=== PATIENT | female | born 1945 | race Caucasian/White ===

== ENCOUNTER 2016-11-10 12:12 | Inpatient (IN) ==
--- NOTE | 2016-11-10 13:08 | Emergency Department Note ---
Arrival - Arrival Chief Complaint: Weakness Stated Complaint: CONFUSION/ HARD TO STAY AWAKE ED Nursing Triage Note: PT STATES SHE WOKE UP THIS MORNING FEELING CONFUSED AND FATIGUED, PT COMPLAINS OF RLE PAIN SECONDARY TO A FALL SHE HAD LAST WEEK. GCS 15 UPON ARRIVAL Mode of Arrival: Wheelchair Limitations: No Limitations Source: Patient Time Seen by Provider: 11/10/16 12:55 - History of Present Illness HPI Narrative: This 71-year-old white female presents with profound weakness with initial symptoms of confusion, ataxia, and slurred speech. The patient went to [employer] this morning him that she felt badly and at [employer] had to be carried out and during this. She was somewhat confused with slurred speech which subsequently cleared after several minutes. Family members did not see any specific extremity weakness, facial droop, nor has the patient had any particular complaints of chest pain, shortness of breath, headache, visual changes or dizziness the last several days prior to this episode. Currently the patient alert and oriented 3 but feels weak and nauseated. Of note the patient has had a recent injury to her hip and carries a diagnosis of rheumatoid as well as destructive DJD of the hip for which she has difficulty ambulating prior to this event. Onset (ago): hour(s) (Patient presents 5 hours post onset of symptoms) Allergies/Adverse Reactions: Allergies Allergy/AdvReac Type Severity Reaction Status Date / Time acetazolamide Allergy Mild RASH Verified 11/10/16 12:25 [From Diamox Sequels] Iodinated Contrast Media - Allergy UNCONSCIOUS Verified 11/10/16 12:25 Oral and [Iodinated Contrast Media - IV Dye] clarithromycin [From Biaxin] AdvReac Nausea Verified 11/10/16 12:25 pentazocine [From Talwin] AdvReac Hallucinati Verified 11/10/16 12:25 ng Home Medications: Home Medications Medication Instructions Recorded Confirmed Type ALPRAZolam [Xanax] 0.25 mg PO BID PRN 10/27/15 10/30/15 History Aspirin [Ecotrin] 81 mg PO DAILY 10/27/15 10/30/15 History Celecoxib [Celebrex] 200 mg PO BID 10/27/15 10/30/15 History Duloxetine HCl [Cymbalta] 60 mg PO BEDTIME 10/27/15 10/30/15 History Esomeprazole Magnesium [Nexium] 40 mg PO BID 10/27/15 10/30/15 History Furosemide Tab [Lasix Tab] 20 mg PO DAILY 10/27/15 10/30/15 History Gabapentin Cap/Tab [Neurontin 400 mg PO TID 10/27/15 10/30/15 History Cap/Tab] HYDROcodone/ACETAMIN 10-325 [[place] 1 tablet PO BID PRN 10/27/15 10/30/15 History 10-325] Hydrocortisone Tab [Cortef] 10 mg PO TID 10/27/15 10/30/15 History Hydroxychloroquine [Plaquenil] 200 mg PO BID 10/27/15 10/30/15 History Levothyroxine Tab [Synthroid Tab] 88 mcg PO DAILY 10/27/15 10/30/15 History Lipase/Protease/Amylase [Zenpep 2 capsule PO TID W/MEALS 10/27/15 10/30/15 History 25,000 Units] Methocarbamol Tab [Robaxin Tab] 500 mg PO BID 10/27/15 10/30/15 History Metoprolol Succinate Xl [Toprol Xl] 50 mg PO BID 10/27/15 10/30/15 History Morphine Sulfate [Idalmis] 40 mg PO BID 10/27/15 10/30/15 History Pantoprazole Tab [Protonix Tab] 40 mg PO BID 10/27/15 10/30/15 History Scopolamine 1.5 mg Patch 1 patch TRANSDERM Q3DAY 10/27/15 10/30/15 History [Transderm Scop 1.5 mg/72 hr Patch] traZODone [Desyrel] 50 mg PO DAILY 10/27/15 10/30/15 History Review of System - Review of System 12 point system: reviewed and no additional remarkable complaints except as stated - Review of System Constitutional: Present: as per HPI Respiratory: Present: as per HPI Cardiovascular: Present: as per HPI Gastrointestinal: Present: as per HPI Musculoskeletal: Present: as per HPI Neurological: Present: as per HPI Medical,Surgical,& Family Hx - Medical History Cardio: History of: Cardiac Dysrhythmia (Afib, TACYCHARDIA), Cardiovascular Problems (DR ARMAS LAST VISIT 6 MONTHS AGO.) Psychological: History of: Anxiety Disorders, Depression Neurology: History of: Migraine (RARELY), Peripheral Neuropathy No history of: Seizures HEENT: History of: Ear Problem, Eye Problem (GLASSES), Dental Problems (UPPER PARTIAL, CROWN BOTTOM RT) Endocrine: History of: Adrenal Disease, Diabetes Mellitus (NIDDM) (PT STATES SHE DOES NOT TAKE MEDICAIONS.), Thyroid Disorder Rheumatology: History of;: Rheumatoid Arthritis Respiratory: History of: Bronchitis (PAST HISTORY) Genitourinary: History of: Kidney Stones Gastrointestinal: History of: GERD, GI Problems (DR PRECIADO PANCREATIC ENZYME DEFICIENCY.) Musculoskeletal: History of: Back/Neck Problems Hematology: History of: Anemia, Clotting Problems (DVT OVER 15 YRS AGO) Other: History of: Anesthesia Reactions (NAUSEA) - Surgical History Cardiac Surgeries: Patient Denies: Cardiac Surgery Thoracic Surgeries: Surgical HX of;: Lithotripsy (X2) HEENT Surgeries: Surgical HX of: Tonsilectomy & Adenoidectomy Abdominal Surgeries: Surgical HX of: Appendectomy, Cholecystectomy, Colonoscopy , EGD Reproductive Surgeries: Surgical HX of;: Breast Surgery (2 RT BREAST BX, 2 LEFT BREAST BX.), Hysterectomy Orthopedic Surgeries: Surgical HX of;: Spinal Surgery (NECK SURGERY 15 YRS AGO C5 C6 FUSSION) - Social History Smoking Status: Never smoker Exam Physical Examination: GENERAL: Well developed, well nourished white female in no acute distress. HEENT: Normocephalic. No trauma. Moist mucous membranes. EOMI. PERRLA. ENT NML NECK: Supple. No adenopathy. CARDIAC: Regular. No murmurs. Heart rate 56 CHEST: Clear to auscultation. No respiratory distress. O2 sat 98% ABDOMEN: Soft. Nontender. Active bowel sounds. EXTREMITIES: No trauma. Normal ROM. No pedal edema. SKIN: No diaphoresis. No rash. NEURO: Alert. Oriented 3. Motor, sensory, vibratory intact. No focal deficits. Vital Signs: Vital Signs Temperature 97.8 F 11/10/16 12:46 Pulse Rate 54 L 11/10/16 13:45 Respiratory Rate 15 11/10/16 13:45 Blood Pressure 86/44 11/10/16 13:45 O2 Sat by Pulse Oximetry 98 11/10/16 13:45 Course - Reevaluation(s) Reevaluation #1: Discussed with patient and family the need for hospitalization given her persistent low blood pressure and events of the morning. - Consultations Consultation #1: Discussed with hospitalist service will admit for further evaluation treatment. Results - Labs CBC & BMP: 11/10/16 13:02 11/10/16 13:02 Labs: I reviewed the laboratory and noted the gross normalcy with minimal mild inconsistencies. - Impressions EKG: Sinus bradycardia 53 with normal [place] interval and QRS duration and with nonspecific ST changes and evidence of old myocardial infarct. - Diagnostic Findings Procedure: Chest x-ray: image reviewed by me, report reviewed by me (Borderline cardiomegaly), CT: image reviewed by me, report reviewed by me (Head: Negative brain study except for right maxillary and ethmoid sinus disease) Disposition Clinical Impression: Altered mental status, Sinusitis, Labile blood pressure Case discussed with: patient, patient's family Disposition: Still a Patient Condition: Guarded Time of Disposition: 14:35
[2016-11-10 13:12] LABS: Basophils # 0.1 10*3/uL (0.0-0.2); Basophils % 0.8 % (0.0-0.8); Eosinophils # 0.3 10*3/uL (0.0-0.87); Eosinophils % 4.2 % (0.00-10.9); Hematocrit 35.8 VOL% (35.7-47.0); Hemoglobin 11.7 GM/DL (12.0-16.0); Immature Granulocytes % 0.3 %; Immature Granulocytes Absolute 0.02 #; Lymphocytes # 1.8 10*3/uL (1.4-4.0); Lymphocytes % 27.8 % (21.3-54.2); Mean Corpuscular HGB Conc 32.7 GM/DL (32-36); Mean Corpuscular Hemoglobin 32 PG (27-34); Mean Platelet Volume 10.3 FL (9.6-12.0); Monocytes # 0.5 10*3/uL (0.11-0.8); Monocytes % 7.2 % (1.7-12.7); Neutrophils # 3.8 10*3/uL (1.4-7.4); Neutrophils % 59.7 % (38.7-73.9); Platelet Count 164 T/CUMM (130-400); Red Blood Count 3.69 MC/CUMM (3.8-5.5); Red Cell Distribution Width 13.3 % (9.3-17.3); White Blood Count 6.4 T/CUMM (4-12)
--- NOTE | 2016-11-10 13:33 | CT Report ---
History: confusion, ataxia, and slurred speech Date: 11/10/2016 Study: CT head without contrast Comparison exam: No previous head CT available Transaxial CT sections were obtained through the brain without contrast. The ventricles are midline in position without evidence of hydrocephalus. There is no mass or area of parenchymal hemorrhage. There is no gross CT evidence of acute cortical stroke. There is no extra-axial hematoma. There is a moderate-sized fluid level in the right maxillary sinus. There is mild to moderate mucosal thickening in the right ethmoid air cells. There is no obvious skull fracture. Impression: No acute intracranial process. Sinusitis This CT exam was performed using one or more the following dose reduction techniques: Automated exposure control, adjustment of the MA and/or KV according to patient size, or use of iterative reconstruction technique.. PROCEDURE INTERPRETED AT [facility] DEPARTMENT OF RADIOLOGY Final Report Signed by: Dr. Bibiana Hollis
[2016-11-10 13:42] LABS: Ammonia < 10 UMOL/L (11-32)
[2016-11-10 13:49] LABS: Lactic Acid 1.1 MMOL/L (0.4-2.0)
[2016-11-10 13:51] LABS: Alanine Aminotransferase 73 U/L (13-56); Albumin 3.2 G/DL (3.4-5.0); Alkaline Phosphatase 105 U/L (45-117); Aspartate Amino Transferase 43 U/L (0-37); Bilirubin,Total < 0.39 MG/DL (0.2-1.0); Blood Urea Nitrogen 27 MG/DL (7-18); CKMB % 2.8 %; Calcium 8.8 MG/DL (8.5-10.1); Free T4 (Free Thyroxine) 0.83 NG/DL (0.76-1.46); Glucose 106 MG/DL (74-106); Osmolality,Calculated 287.1 MOS/KG (273-304); Sodium 142 MMOL/L (136-145); Troponin I Only < 0.015 NG/ML (0.00-0.045)
--- NOTE | 2016-11-10 13:53 | XRay Report ---
History: Shortness of breath Date: 11/10/2016 Study: Chest x-ray AP portable Comparison exam: May 17, 2014 There is mild cardiomegaly. There is no mediastinal mass. The pulmonary vasculature is not engorged. There is no pleural effusion. There is no confluent pulmonary infiltrate. There are scattered emphysematous changes. There is moderate thoracic spondylosis and mild osteopenia. There is old fracture deformity of the right humerus as before. Impression: No definite acute process. Mild cardiomegaly. Chronic lung changes PROCEDURE INTERPRETED AT [facility] DEPARTMENT OF RADIOLOGY Final Report Signed by: Dr. Bibiana Hollis
[2016-11-10] MEDS ORDERED: SODIUM CHLORIDE 0.9% 500 ML IV STA (14:10)
[2016-11-10 14:14] LABS: Apearance,Urine Slightly Hazy (Clear); Bilirubin,Urine Negative (Negative); Blood, Urine Small mg/dL (Negative); Glucose,Urine (UA) Negative (Negative); Ketones,Urine Negative (Negative); Nitrite,Urine Negative (Negative); Protein,Urine Negative; RBC,Urine 27 /HPF (0-4); Squamous Epithelial Cell,Urine Occasional /HPF (0-10); Urine Specific Gravity 1.011 (1.001-1.035); Urine Urobilinogen < 2.0 EU/DL (0.2-1.0); WBC,Urine 4 /HPF (0-6)
[2016-11-10 14:15] LABS: Urine Color Dark yellow (Yellow)
--- NOTE | 2016-11-10 15:39 | Hospitalist History & Physical ---
Assessment and Plan (1) Asterixis Status: Acute Assessment and plan: Patient has prominent asterixis in the setting of intact cognitive function but deterioration level of consciousness. We note that she has an elevated CO2 content. There is no history of lung disease but will need to rule out elevated PCO2 level. This may reflect a metabolic alkalosis secondary to bicarbonate wasting due to chronic diarrhea (the source at this time is unestablished with what appears to be an empiric treatment for possible pancreatic insufficiency). The possibility of secondary hypoventilation would then be considered. Current Visit: Yes (2) Rheumatoid arthritis Status: Chronic Assessment and plan: Chronic, with associated osteoporosis and recurrent renal stones. Recent resumption of Humira with chronic use of Plaquenil. Chest x-ray does not show changes consistent with interstitial (rheumatoid) pulmonary disease Current Visit: Yes (3) Elevated CK Status: Acute Assessment and plan: This is unassociated with any chest pain. Cardiac troponin I level is normal. Consider possible chronic muscle disease with regenerative MB fraction Current Visit: Yes History of Present Illness History of present illness: Ms. Zazueta is a 71 year old female she has a history of chronic rheumatoid arthritis and in the last several weeks has reintroduced Humira. She has been bothered following a fall by hip pain with perhaps some sleep disturbance. She states that yesterday in the evening she felt somewhat fatigued. She retired for the evening and again was somewhat restless due to the discomfort in her hip and her arthritis. When she awoke this morning to go to [employer] she found herself to be diffusely weak. During the service she fell asleep repetitively and although she had driven herself to [employer] friends transported her home. She presented to the emergency department for evaluation. She is on examination hypersomnolent with prominent asterixis. When aroused she is cognitively intact with preserved motor function. Patient has a history of over 2 years of refractory diarrhea with nausea but no emesis. She has lost substantial amounts of weight over this time and has been evaluated by Dr. Hollis as well as [facility] with no positive findings. She has a history of atrial fibrillation in the past and recently underwent Holter monitoring by Dr. Ghotra and was told that she might need a pacemaker. She has been on chronic beta blockade for her atrial fibrillation with what sounds like excellent suppression of this arrhythmia. She has been on chronic thyroid replacement therapy and has had frequent thyroid testing confirming therapeutic levels by her report. She has no history of hepatitis or jaundice. She has never consumed alcohol or been told of any lung problems. She does list Diamox as an allergy she states it caused a skin rash she is unclear why she was given this agent. Her admitting laboratory work shows an increased CO2 content in the setting of up to 7 bowel movements per day. Home Medications Medication Instructions Recorded Confirmed Type ALPRAZolam [Xanax] 0.25 mg PO BID PRN 10/27/15 10/30/15 History Aspirin [Ecotrin] 81 mg PO DAILY 10/27/15 10/30/15 History Celecoxib [Celebrex] 200 mg PO BID 10/27/15 10/30/15 History Duloxetine HCl [Cymbalta] 60 mg PO BEDTIME 10/27/15 10/30/15 History Esomeprazole Magnesium [Nexium] 40 mg PO BID 10/27/15 10/30/15 History Furosemide Tab [Lasix Tab] 20 mg PO DAILY 10/27/15 10/30/15 History Gabapentin Cap/Tab [Neurontin 400 mg PO TID 10/27/15 10/30/15 History Cap/Tab] HYDROcodone/ACETAMIN 10-325 [[place] 1 tablet PO BID PRN 10/27/15 10/30/15 History 10-325] Hydrocortisone Tab [Cortef] 10 mg PO TID 10/27/15 10/30/15 History Hydroxychloroquine [Plaquenil] 200 mg PO BID 10/27/15 10/30/15 History Levothyroxine Tab [Synthroid Tab] 88 mcg PO DAILY 10/27/15 10/30/15 History Lipase/Protease/Amylase [Zenpep 2 capsule PO TID W/MEALS 10/27/15 10/30/15 History 25,000 Units] Methocarbamol Tab [Robaxin Tab] 500 mg PO BID 10/27/15 10/30/15 History Metoprolol Succinate Xl [Toprol Xl] 50 mg PO BID 10/27/15 10/30/15 History Morphine Sulfate [Idalmis] 40 mg PO BID 10/27/15 10/30/15 History Pantoprazole Tab [Protonix Tab] 40 mg PO BID 10/27/15 10/30/15 History Scopolamine 1.5 mg Patch 1 patch TRANSDERM Q3DAY 10/27/15 10/30/15 History [Transderm Scop 1.5 mg/72 hr Patch] traZODone [Desyrel] 50 mg PO DAILY 10/27/15 10/30/15 History Allergies Allergy/AdvReac Type Severity Reaction Status Date / Time acetazolamide Allergy Mild RASH Verified 11/10/16 12:25 [From Diamox Sequels] Iodinated Contrast Media - Allergy UNCONSCIOUS Verified 11/10/16 12:25 Oral and [Iodinated Contrast Media - IV Dye] clarithromycin [From Biaxin] AdvReac Nausea Verified 11/10/16 12:25 pentazocine [From Talwin] AdvReac Hallucinati Verified 11/10/16 12:25 ng Medical,Surgical,& Family Hx - Medical History Cardio: History of: Cardiac Dysrhythmia (Paroxysmal atrial fibrillation on chronic beta blockade) Psychological: History of: Anxiety Disorders (Use of as needed Xanax), Depression (Her approximately a year to year and a half ago) Neurology: History of: Migraine (RARELY), Peripheral Neuropathy No history of: Seizures HEENT: History of: Ear Problem, Dental Problems (UPPER PARTIAL, CROWN BOTTOM RT) Endocrine: History of: Diabetes Mellitus (NIDDM) (PT STATES SHE DOES NOT TAKE MEDICAIONS.), Thyroid Disorder (Chronic stable thyroid replacement) Rheumatology: History of;: Rheumatoid Arthritis (Chronic Plaquenil with recent resumption of Humira) Respiratory: History of: Bronchitis (PAST HISTORY) Genitourinary: History of: Kidney Stones (Multiply recurrent with single episode requiring ureteral stent) Gastrointestinal: History of: GERD, Liver Problems (2016 outpatient visit for abnormal liver function test), GI Problems (2 year history of diarrhea and weight loss persistent on pancreatic enzyme ) Musculoskeletal: History of: Osteoporosis Hematology: History of: Anemia, Clotting Problems Other: History of: Anesthesia Reactions - Surgical History Cardiac Surgeries: Sugical HX of: Cardiac Surgery Thoracic Surgeries: Surgical HX of;: Lithotripsy (X2) HEENT Surgeries: Surgical HX of: Tonsilectomy & Adenoidectomy Abdominal Surgeries: Surgical HX of: Appendectomy, Cholecystectomy, Colonoscopy , EGD Reproductive Surgeries: Surgical HX of;: Breast Surgery, Hysterectomy Orthopedic Surgeries: Surgical HX of;: Spinal Surgery, Total Knee Replacement ( Bilateral) - Social History Smoking Status: Never smoker - Constitutional Constitutional: Present: frequent falls, weight loss. Absent: fever(s) - Cardiovascular Cardiovascular: Absent: chest pain with activity, dyspnea, edema, palpitations - Respiratory Respiratory: Absent: cough, hemoptysis, dyspnea on exertion, wheezing - Gastrointestinal Gastrointestinal: Present: dysphagia (Occasional). Absent: abdominal pain, hematemesis, hematochezia, melena, odynophagia, jaundice - Genitourinary Genitourinary: Absent: dysuria - Musculoskeletal Musculoskeletal: Present: back pain, muscle weakness - Neurological Neurological: Absent: convulsions, memory loss, syncope Exam - Constitutional Vitals: Period Temp Pulse Resp BP Sys/Mehta Pulse Ox Last 24 Hr 97.8 F-97.8 F 54-62 15-20 74-106/38-49 96-100 General appearance: over weight - Eye Eye exam: Absent: scleral icterus - Neck Neck exam: Absent: lymphadenopathy, thyromegaly - Respiratory Respiratory exam: Present: clear to auscultation bilaterally. Absent: rales, rhonchi, wheezes - Cardiovascular Cardiovascular exam: Present: JVD (4 mmHg A-wave dominated), regular rate and rhythm - GI/Abdominal GI/Abdominal exam: Present: normal bowel sounds. Absent: ascites, distended, organomegaly, tenderness - Extremities Exam Extremities exam: Present: other (Moderate joint deformity left upper extremity greater than right upper extreme). Absent: edema - Neurological Exam Neurological exam: Present: alert (Patient is aroused from sleep and maintains awareness with conversation), oriented X3, other (Bilateral prominent asterixis) - Psychiatric Psychiatric exam: Present: normal affect, normal mood Results - Labs CBC & BMP: 11/10/16 13:02 11/10/16 13:02 Labs: AST 43 ALT 73 INR 1.0 Ammonia less than 10 CPK 193/5.4 Cardiac troponin I 0 TSH 1.06 Urinalysis specific gravity 1.011, pH 5.0, sediment benign - Diagnostic Findings Procedure: Chest x-ray: image reviewed by me (Apical lordotic mild eventration of the right hemidiaphragm [place]), CT: report reviewed by me (CT head no acute change)
[2016-11-10 16:11] LABS: ABG Base Excess 4.1 MMOL/L (-2.5-2.5); ABG HCO3 30.4 MMOL/L (20-26); ABG Oxygen Saturation 93.3 % (95-100); ABG PCO2 54.2 MM HG (35-48); ABG PH 7.367 (7.35-7.45); ABG PO2 67.7 MM HG (80-95); ABG TCO2 32.1 MMOL/L (23-27); Allen Test Positive; Pt O2 Delivery Device Other
[2016-11-10] MEDS ORDERED: GLUCAGON 1 MG VIAL IM PRN (16:24)
[2016-11-10] MEDS ORDERED: DEXTROSE 50% 25 GM/50 ML SYRINGE IV PRN (16:24)
[2016-11-10] MEDS ORDERED: ONDANSETRON 4 MG/2 ML VIAL IV PRN (16:24)
[2016-11-10] MEDS ORDERED: ENOXAPARIN 40 MG/0.4 ML SYRINGE SUBCUT SCH (16:30)
--- NOTE | 2016-11-10 16:37 | Event Note ---
Ms. Zazueta's arterial blood gases demonstrated pH of 7.38 PCO2 of 54 PO2 of 68 on room air. Her base excess is minimally elevated. This would be consistent with a primary respiratory acidosis with secondary metabolic compensation rather than a primary metabolic alkalosis. A review of her medication list demonstrates the use of Idalmis at 40 mg twice daily with as needed use of [place] 10/325. Although she has had diarrhea and is on Lasix tablets along with high- dose hydrocortisone I suspect that her findings are that of excessive sedation due to pain medication. We will gradually reduce her morphine dose limit sedation asked and observe in CCU.
[2016-11-10] MEDS: SODIUM CHLORIDE 0.45% 1,000 ML IV SCH (17:28)
[2016-11-10] MEDS: INSULIN REGULAR 100 UNIT/ML SUBCUT SCH ×2 (17:48→21:19)
[2016-11-10] MEDS: LIPASE/PROTEASE/AMYLASE 4,200 UNITS CAPSULE PO SCH (18:40)
[2016-11-10] MEDS ORDERED: DULoxetine 30 MG CAPSULE PO SCH (21:00)
[2016-11-10] MEDS ORDERED: MORPHINE ER 30 MG TABLET PO SCH (21:00)
[2016-11-10] MEDS ORDERED: HYDROCORTISONE 10 MG TABLET PO SCH (21:00)
[2016-11-10] MEDS: GABAPENTIN 400 MG CAPSULE PO SCH (21:18)
[2016-11-11 06:16] LABS: Calcium 8.4 MG/DL (8.5-10.1); Potassium 4.5 MMOL/L (3.5-5.1)
[2016-11-11] MEDS: SODIUM CHLORIDE 0.45% 1,000 ML IV SCH (06:40)
[2016-11-11] MEDS ORDERED: LEVOTHYROXINE 88 MCG TABLET PO SCH (07:00)
--- NOTE | 2016-11-11 08:12 | EKG Report ---
Stationary ECG Study [facility] ER Test Date: 11/10/2016 2:14:42 PM Pat Name: JED HAWKINS Department: Room: 128 Gender: F Retail Clerk: : 1945 Requested by: Pavel Christina Order Number: [id number] Reading MD: KASIA WEST Intervals [place] Rate: 53 P: 71 DC: 171 QRS: -4 QRSD: 122 T: 36 QT: 462 QTc: 446 Interpretive Statements SINUS BRADYCARDIA POSSIBLE LATERAL MYOCARDIAL INFARCTION, PROBABLY OLD Electronically Signed On 11-11-16 15:30:48 CDT by KASIA WEST [email or web address]
--- NOTE | 2016-11-11 08:17 | EKG Report ---
Stationary ECG Study [facility] Test Date: 11/10/2016 6:33:58 PM Pat Name: JED HAWKINS Department: Room: 128 Gender: F Manager Ship: : 1945 Requested by: Cathy Blanton Order Number: [id number] Reading MD: KASIA WEST Intervals [place] Rate: 64 P: 56 AR: 162 QRS: -16 QRSD: 122 T: 52 QT: 423 QTc: 433 Interpretive Statements SINUS RHYTHM MODERATE VOLTAGE CRITERIA FOR LVH PROBABLE LATERAL MYOCARDIAL INFARCTION, PROBABLY OLD Electronically Signed On 11-11-16 15:32:14 CDT by KASIA WEST [id number]
[2016-11-11] MEDS ORDERED: ALPRAZolam 0.25 MG TABLET PO PRN (08:33)
[2016-11-11] MEDS ORDERED: MORPHINE ER 30 MG TABLET PO SCH (08:37)
--- NOTE | 2016-11-11 08:47 | Discharge Summary ---
<Stephanie Narvaez - Last Filed: 11/11/16 10:06> Hospital Course - Hospital Course Hospital Course: Ms Zazueta 71 y/o w/PMHx of Afib, Anxiety, Depression, RA, GERD, Chronic Back/ Neck pain, Diabetes, Thyroid disorder, Anemia, DVT, presented to the ED 2016 for further Evaluation of generalized weakness, confusion, slurred speech, & ataxia. IN ED: Head CT: nothing acute, sinusitis. CXR: nothing acute, mild cardiomegaly. LABS significant for: ABG: pH 7.367, pCO2 54.2, HCo3 30.4. AST 43, ALT 73. Troponin NEgative, CK-MB 5.4. Patient reports passing out. Based on review of her medications, she is likely orthostatic from her medications. She was given a NS bolus. Her cortisol level is unreliable due to the fact that she is already on hydrocortisone. I have reorganized her hydrocortisone for her to take 20 mg in the morning and 10 at noon. Patient says she has had multiple falls and her last fall she injured her right hip. She has had an x- ray of her hip and there is no evidence of fracture. CT of her hip today shows no evidence of fracture yet she continues to have pain and is high risk for any occult fracture. I will set her up to see Dr. Rodas from orthopedics to get an opinion. Echocardiogram showed normal ejection fraction but formal reading by store planner is still pending. I recommend holding her Lasix as it is contributing to dehydration. Her liver enzymes are mildly elevated and she needs to have these repeated in 5 days with results called to Dr. Garcia. Patient is on several medications that would affect her liver. I also recommend cutting down on her Idalmis to 20 mg twice a day. Patient is on rheumatoid arthritis medications and does have evidence based on her ABG CO2 retention. Patient is not a smoker. She needs further evaluation by a horticulture supervisor and will set her up to see Dr. Gan. Patient needs to follow- up with Dr. Garcia in 1 week. Patient seen and examined. Hospital course reviewed and edited. Discharge Plan - Discharge Data Disposition: Home Health Service - Discharge Medications New Morphine Sulfate [Idalmis] 20 mg PO BID #20 capsule Continue Scopolamine 1.5 mg Patch [Transderm Scop 1.5 mg/72 hr Patch] 1 patch TRANSDERM Q3DAY Pantoprazole Tab [Protonix Tab] 40 mg PO BID Lipase/Protease/Amylase [Zenpep 25,000 Units] 2 capsule PO TID W/MEALS HYDROcodone/ACETAMIN 10-325 [Shelby 10-325] 1 tablet PO BID PRN PRN Reason: Pain Methocarbamol Tab [Robaxin Tab] 500 mg PO BID ALPRAZolam [Xanax] 0.25 mg PO BID PRN PRN Reason: Agitation Aspirin [Ecotrin] 81 mg PO DAILY Levothyroxine Tab [Synthroid Tab] 88 mcg PO DAILY Hydroxychloroquine [Plaquenil] 200 mg PO BID Gabapentin Cap/Tab [Neurontin Cap/Tab] 400 mg PO TID Duloxetine HCl [Cymbalta] 60 mg PO BEDTIME Celecoxib [Celebrex] 200 mg PO BID Colestipol [Colestid] 1 gm BID Hydrocortisone Tab [Cortef Tab] 10 mg PO TID #0 Changed Metoprolol Succinate Xl [Toprol Xl] 50 mg PO DAILY #0 traZODone [Desyrel] 50 mg PO BEDTIME #0 Discontinued Morphine Sulfate [Idalmis] 40 mg PO BID Furosemide Tab [Lasix Tab] 20 mg PO DAILY Esomeprazole Magnesium [Nexium] 40 mg PO BID - Follow Up or Referral Follow Up: Levi Rodas Jr., MD [Physician] - 1 Week (right hip pain ) Cherelle Garcia MD [Primary Care Provider] - 2 Weeks Jourdan Gan MD [Physician] - 1 Week (Elevated CO2 in patient on RA meds. Needs to see pulmonary tricia ) - Forms/Instructions Exam - Constitutional Vitals: Period Temp Pulse Resp BP Sys/Mehta Pulse Ox Last 24 Hr 96.9 F-98.4 F 53-108 11-20 74-117/37-74 90-100 Discharge Results Procedures and tests throughout hospitalization: Pending Orders 11/10/16 14:01 Blood Culture Stat 11/10/16 16:46 MRSA Surveillence, Inf Control Routine 11/11/16 04:41 MRSA Surveillence, Inf Control Routine 11/11/16 09:02 CT hip RT wo con Routine Labs on day of discharge: Labs from last 24 hours 11/11/16 11/11/16 11/11/16 08:42 07:39 04:04 WBC RBC Hgb Hct MCV MCH MCHC RDW Plt Count MPV Neut % (Auto) Lymph % (Auto) Henry % (Auto) Eos % (Auto) Baso % (Auto) Neut # (Auto) Lymph # (Auto) Henry # (Auto) Eos # (Auto) Baso # (Auto) Immature Gran % Nucleated RBC % Immature Gran # Nucleated RBCs # Immature Plt Fraction INR PT Patient/Control Mix Circ Anticoag PTT ABG pH ABG pCO2 ABG pO2 ABG HCO3 ABG Total CO2 ABG O2 Saturation ABG Base Excess FiO2 Sodium 143 Potassium 4.5 Chloride 107 Carbon Dioxide 31 Anion Gap 9.5 BUN 20 H Creatinine 0.80 GFR Calculation 77 BUN/Creatinine Ratio 25.00 H Glucose 99 POC Glucose 93 Calculated Osmolality 287.0 Lactic Acid Calcium 8.4 L Iron TIBC % Saturation Ferritin Total Bilirubin AST ALT Alkaline Phosphatase Ammonia Total Creatine Kinase CK-MB (CK-2) CK and CKMB Interp Troponin I Total Protein Albumin Globulin Albumin/Globulin Ratio Free T4 TSH 3rd Generation Cortisol 8am Sample 1.5 L Urine Color Urine Appearance Urine pH Ur Specific Waldron Urine Protein Urine Glucose (UA) Urine Ketones Urine Blood Urine Nitrate Urine Bilirubin Urine Urobilinogen Urine Leukocytes Urine RBC Urine WBC Ur Squamous Epith Cells Ur Culture Indicated? 11/11/16 11/10/16 11/10/16 04:03 21:04 16:47 WBC RBC Hgb Hct MCV MCH MCHC RDW Plt Count MPV Neut % (Auto) Lymph % (Auto) Henry % (Auto) Eos % (Auto) Baso % (Auto) Neut # (Auto) Lymph # (Auto) Henry # (Auto) Eos # (Auto) Baso # (Auto) Immature Gran % Nucleated RBC % Immature Gran # Nucleated RBCs # Immature Plt Fraction INR PT Patient/Control Mix Circ Anticoag PTT ABG pH ABG pCO2 ABG pO2 ABG HCO3 ABG Total CO2 ABG O2 Saturation ABG Base Excess FiO2 Sodium Potassium Chloride Carbon Dioxide Anion Gap BUN Creatinine GFR Calculation BUN/Creatinine Ratio Glucose POC Glucose 116 H 91 Calculated Osmolality Lactic Acid Calcium Iron 42 L TIBC 311 % Saturation 13.5 L Ferritin 55.7 Total Bilirubin AST ALT Alkaline Phosphatase Ammonia Total Creatine Kinase CK-MB (CK-2) CK and CKMB Interp Troponin I Total Protein Albumin Globulin Albumin/Globulin Ratio Free T4 TSH 3rd Generation Cortisol 8am Sample Urine Color Urine Appearance Urine pH Ur Specific Waldron Urine Protein Urine Glucose (UA) Urine Ketones Urine Blood Urine Nitrate Urine Bilirubin Urine Urobilinogen Urine Leukocytes Urine RBC Urine WBC Ur Squamous Epith Cells Ur Culture Indicated? 11/10/16 11/10/16 11/10/16 14:30 14:01 13:02 WBC RBC Hgb Hct MCV MCH MCHC RDW Plt Count MPV Neut % (Auto) Lymph % (Auto) Henry % (Auto) Eos % (Auto) Baso % (Auto) Neut # (Auto) Lymph # (Auto) Henry # (Auto) Eos # (Auto) Baso # (Auto) Immature Gran % Nucleated RBC % Immature Gran # Nucleated RBCs # Immature Plt Fraction INR PT Patient/Control Mix Circ Anticoag PTT ABG pH 7.367 ABG pCO2 54.2 H ABG pO2 67.7 L ABG HCO3 30.4 H ABG Total CO2 32.1 H ABG O2 Saturation 93.3 L ABG Base Excess 4.1 H FiO2 21.00 Sodium Potassium Chloride Carbon Dioxide Anion Gap BUN Creatinine GFR Calculation BUN/Creatinine Ratio Glucose POC Glucose Calculated Osmolality Lactic Acid 1.1 Calcium Iron TIBC % Saturation Ferritin Total Bilirubin AST ALT Alkaline Phosphatase Ammonia < 10 L Total Creatine Kinase CK-MB (CK-2) CK and CKMB Interp Troponin I Total Protein Albumin Globulin Albumin/Globulin Ratio Free T4 TSH 3rd Generation Cortisol 8am Sample Urine Color Dark yellow Urine Appearance Slightly hazy Urine pH 5.0 Ur Specific Waldron 1.011 Urine Protein Negative Urine Glucose (UA) Negative Urine Ketones Negative Urine Blood Small Urine Nitrate Negative Urine Bilirubin Negative Urine Urobilinogen < 2.0 H Urine Leukocytes Trace Urine RBC 27 Urine WBC 4 Ur Squamous Epith Cells Occasional Ur Culture Indicated? Not indicated 11/10/16 11/10/16 11/10/16 13:02 13:02 13:02 WBC 6.4 RBC 3.69 L Hgb 11.7 L Hct 35.8 MCV 97.0 MCH 32 MCHC 32.7 RDW 13.3 Plt Count 164 MPV 10.3 Neut % (Auto) 59.7 Lymph % (Auto) 27.8 Henry % (Auto) 7.2 Eos % (Auto) 4.2 Baso % (Auto) 0.8 Neut # (Auto) 3.8 Lymph # (Auto) 1.8 Henry # (Auto) 0.5 Eos # (Auto) 0.3 Baso # (Auto) 0.1 Immature Gran % 0.3 Nucleated RBC % 0.0 Immature Gran # 0.02 Nucleated RBCs # 0.00 Immature Plt Fraction 0.0 INR 1.0 PT Patient/Control Mix 10.0 Circ Anticoag PTT 25.0 ABG pH ABG pCO2 ABG pO2 ABG HCO3 ABG Total CO2 ABG O2 Saturation ABG Base Excess FiO2 Sodium 142 Potassium 5.0 Chloride 106 Carbon Dioxide 35 H Anion Gap 6.0 BUN 27 H Creatinine 1.00 GFR Calculation 58 BUN/Creatinine Ratio 27.00 H Glucose 106 POC Glucose Calculated Osmolality 287.1 Lactic Acid Calcium 8.8 Iron TIBC % Saturation Ferritin Total Bilirubin < 0.39 AST 43 H ALT 73 H Alkaline Phosphatase 105 Ammonia Total Creatine Kinase 193 H CK-MB (CK-2) 5.4 H CK and CKMB Interp 2.8 Troponin I < 0.015 Total Protein 6.0 L Albumin 3.2 L Globulin 2.8 Albumin/Globulin Ratio 1.1 Free T4 0.83 TSH 3rd Generation 1.060 Cortisol 8am Sample Urine Color Urine Appearance Urine pH Ur Specific Waldron Urine Protein Urine Glucose (UA) Urine Ketones Urine Blood Urine Nitrate Urine Bilirubin Urine Urobilinogen Urine Leukocytes Urine RBC Urine WBC Ur Squamous Epith Cells Ur Culture Indicated? Preliminary micro results at discharge 11/10/16 16:46 MRSA Surveillance Culture - Preliminary Nares No MRSA isolated. DS: Provider Date of admission: 11/10/16 15:16 Primary care physician: Cherelle Garcia MD Attending physician on admission: Pratik Bryant MD Consults: 11/10/16 16:57 Consult to Dietitian [CONS] Routine Reason for Dietitian: Dietary Consult Consult Comment: weight loss without trying, diabetic Discharging clinician: Stephanie Narvaez NP <Cathy Rg - Last Filed: 11/11/16 11:45> Hospital Course - Time spent with patient Time with patient DS: Less than 30 minutes (25 min) Discharge Plan - Discharge Data Condition at Discharge: Stable Discharge Diet: heart healthy Activity: resume usual activities as tolerated Hygiene: no restrictions Weight Bearing at Discharge: full weight bearing Driving: other (never) - Forms/Instructions Additional Discharge Instructions: liver profile repeat in 5 days with results called to Dr. Garcia Exam - Constitutional General appearance: normal weight, no acute distress - Respiratory Respiratory exam: Present: clear to auscultation bilaterally - Cardiovascular Cardiovascular exam: Present: regular rate and rhythm. Absent: systolic murmur - GI/Abdominal GI/Abdominal exam: Present: normal bowel sounds, soft. Absent: tenderness - Extremities Exam Extremities exam: Present: normal inspection, normal capillary refill - Neurological Exam Neurological exam: Present: alert, oriented X3, reflexes normal. Absent: motor sensory deficit - Psychiatric Psychiatric exam: Present: normal affect, normal mood
[2016-11-11] MEDS ORDERED: COLESTIPOL 1 GM TABLET PO SCH (09:00)
[2016-11-11] MEDS ORDERED: METOPROLOL SUCCINATE XL 50 MG TABLET PO SCH (09:00)
[2016-11-11] MEDS ORDERED: SODIUM CHLORIDE 0.9% 500 ML IV ONE (09:00)
[2016-11-11] MEDS ORDERED: ASPIRIN EC 81 MG TABLET PO SCH (09:00)
[2016-11-11] MEDS ORDERED: PANTOPRAZOLE 40 MG TABLET PO SCH (09:00)
[2016-11-11] MEDS ORDERED: CELECOXIB 200 MG CAPSULE PO SCH (09:00)
[2016-11-11] MEDS ORDERED: HYDROXYCHLOROQUINE 200 MG TABLET PO SCH (09:00)
[2016-11-11] MEDS ORDERED: METHOCARBAMOL 500 MG TABLET PO SCH (09:00)
[2016-11-11] MEDS ORDERED: METOPROLOL SUCCINATE XL 25 MG TABLET PO SCH (09:00)
[2016-11-11] MEDS ORDERED: HYDROCORTISONE 10 MG TABLET PO SCH ×3 (09:00→12:00)
[2016-11-11 09:35] LABS: % Iron Saturation 13.5 % (18-50); Ferritin 55.7 ng/ml (8-252)
--- NOTE | 2016-11-11 10:32 | CT Report ---
CT right hip November 11, 2016 Indication: Fall with pain, possible occult fracture Comparison images not available Technique: CT scanning of the right hip was performed without contrast per routine protocol Findings: No fracture or dislocation. Mild degenerative changes across the joint space. Small herniation pits at the femoral head neck junction. No joint effusion. Regional soft tissues are unremarkable. Impression: No evidence of acute traumatic injury. PROCEDURE INTERPRETED AT [facility] DEPARTMENT OF RADIOLOGY Final Report Signed by: Oliver Shrestha
[2016-11-11] MEDS: LIPASE/PROTEASE/AMYLASE 4,200 UNITS CAPSULE PO SCH ×2 (10:37→13:14)
[2016-11-11] MEDS: INSULIN REGULAR 100 UNIT/ML SUBCUT SCH ×2 (10:37→13:13)
[2016-11-11] MEDS: GABAPENTIN 400 MG CAPSULE PO SCH (10:41)
[2016-11-11] MEDS ORDERED: PROTEASE PO SCH (12:00)
[2016-11-11] MEDS ORDERED: AMYLASE PO SCH (12:00)
[2016-11-11] MEDS ORDERED: LIPASE PO SCH (12:00)
[2016-11-11 14:27] VITALS: BP 105/44
[2016-11-11] MEDS ORDERED: DULoxetine 30 MG CAPSULE PO SCH (21:00)
--- NOTE | 2016-11-11 21:32 | ECHO Report ---
Denisha Zazueta 11/11/2016 Exam Date: 09:03 Referring Physician: Lizzie Smith Technologist: VAUGHN Age: 71 Ht (in): 62 Wt (lb): 171 FExam [facility] Gender: Echo [id number]: Weakness, Confusion, Slurred speechIndications:, Ataxia following cerebral infarction, Rheumatoid arthritis, NIDDM BP: 103 / 53 HR: 84 SinusRhythm: Technical Quality: IMPRESSIONS Normal left ventricular cavity size. Normal left ventricular wall thickness. Left ventricular ejection fraction is estimated at 60 %. Grade 2 diastolic dysfunction. Mild biatrial enlargement. Thickened mitral valve, with trace regurgitation, without stenosis. Mild aortic valve sclerosis, without stenosis or insufficiency. Mild pulmonary hypertension. MEASUREMENTS (Male / Female) Normal Values 2D ECHO LV Diastolic Diameter PLAX 4.6 cm 4.2 - 5.9 / 3.9 - 5.3 cm LV Systolic Diameter PLAX 3.0 cm LV Fractional Shortening PLAX 35.0 % IVS Diastolic Thickness 0.9 cm 0.6 - 1.0 / 0.6 - 0.9 cm LVPW Diastolic Thickness 0.9 cm 0.6 - 1.0 / 0.6 - 0.9 cm RV Internal Dim ED PLAX 2.1 cm Aortic Root Diameter 3.3 cm LA Systolic Diameter LX 2.9 cm 3.0 - 4.0 / 2.7 - 3.8 cm DOPPLER TR Peak Velocity 303.0 cm/s TR Peak Gradient 36.7 mmHg FINDINGS Left Ventricle Normal left ventricular cavity size. Normal left ventricular wall thickness. Left ventricular ejection fraction is estimated at 60 %. Grade 2 diastolic dysfunction. Right Ventricle The right ventricle is normal in size and function. Right Atrium The right atrium is mildly enlarged. Left Atrium Mildly dilated left atrium. Mitral Valve Thickened mitral valve, with trace regurgitation, without stenosis. Aortic Valve Mild aortic valve sclerosis, without stenosis or insufficiency. Tricuspid Valve Morphologically normal tricuspid valve. Mild tricuspid valve regurgitation. Tricuspid regurgitation velocities suggest a PAP of 47 mmHg. Pulmonic Valve Morphologically normal pulmonic valve without significant stenosis. There is no pulmonic regurgitation. Pericardium Normal pericardium without effusion. Aorta Normal ascending aorta dimension. Yunior Antoine (Electronically Signed) 11 November 2016 Final Date: 21:22
== END 2016-11-11 14:15 | disposition home health service (06) | DRG 312 ==
LOC: N.ED 12:12 → N.EDINP 15:15 → SUATTDRO 15:16 → N.CC 15:29
PROVIDERS: ADMIT Internal Medicine Cardiovascular Disease; ATTEND Internal Medicine

== ENCOUNTER 2017-12-22 08:20 | Inpatient (IN) ==
[2017-12-22 10:41] LABS: Apearance,Urine CLEAR (Clear); Bilirubin,Urine Negative (Negative); Blood, Urine Negative (Negative); Glucose,Urine (UA) Negative (Negative); Ketones,Urine Negative (Negative); Mucus,Urine Occasional /LPF (Occasional); Nitrite,Urine Negative (Negative); Protein,Urine Negative; RBC,Urine 1 /HPF (0-4); Urine Color Yellow (Yellow); Urine Specific Gravity 1.011 (1.001-1.035); Urine Urobilinogen < 2.0 EU/DL (0.2-1.0); WBC,Urine 1 /HPF (0-6)
[2017-12-22 12:07] LABS: Alanine Aminotransferase 37 U/L (13-56); Albumin 3.1 G/DL (3.4-5.0); Alkaline Phosphatase 135 U/L (45-117); Aspartate Amino Transferase 34 U/L (0-37); Bilirubin,Total < 0.39 MG/DL (0.2-1.0); Blood Urea Nitrogen 25 MG/DL (7-18); Calcium 8.7 MG/DL (8.5-10.1); Glucose 90 MG/DL (74-106); Osmolality,Calculated 280.5 MOS/KG (273-304); Potassium 4.6 MMOL/L (3.5-5.1); Sodium 139 MMOL/L (136-145); Total Protein 6.9 G/DL (6.4-8.3)
[2017-12-22 12:46] LABS: Basophils # 0.1 10*3/uL (0.0-0.2); Eosinophils # 0.2 10*3/uL (0.0-0.87); Eosinophils % 2.9 % (0.00-10.9); Hematocrit 33.8 VOL% (35.7-47.0); Hemoglobin 10.6 GM/DL (12.0-16.0); Immature Granulocytes % 0.4 %; Immature Granulocytes Absolute 0.03 #; Lymphocytes % 29.2 % (21.3-54.2); Mean Corpuscular HGB Conc 31.4 GM/DL (32-36); Mean Corpuscular Hemoglobin 32 PG (27-34); Mean Corpuscular Volume 102.1 FL (87-102); Mean Platelet Volume 10.2 FL (9.6-12.0); Monocytes # 0.5 10*3/uL (0.11-0.8); Monocytes % 6.6 % (1.7-12.7); Neutrophils # 4.1 10*3/uL (1.4-7.4); Neutrophils % 59.9 % (38.7-73.9); Platelet Count 231 T/CUMM (130-400); Red Blood Count 3.31 MC/CUMM (3.8-5.5); Red Cell Distribution Width 13.9 % (9.3-17.3); White Blood Count 6.9 T/CUMM (4-12)
[2017-12-22] MEDS ORDERED: ONDANSETRON 4 MG/2 ML VIAL IV STA (13:35)
[2017-12-22] MEDS ORDERED: HYDROmorphone 2 MG/1 ML VIAL IV STA (13:35)
[2017-12-22] MEDS ORDERED: ONDANSETRON 4 MG/2 ML VIAL ONE (13:36)
[2017-12-22] MEDS ORDERED: HYDROmorphone 2 MG/1 ML VIAL ONE (13:36)
[2017-12-22] MEDS ORDERED: SODIUM CHLORIDE 0.9% 500 ML IV ONE (13:45)
[2017-12-22 13:53] LABS: Sedimentation Rate-Westergren 70 MM/HR (0-30)
[2017-12-22] MEDS ORDERED: PIPERACILLIN/TAZOBACTAM 3,375 MG in SODIUM CHLORIDE 0.9% 100 ML IV STA (14:53)
[2017-12-22] MEDS ORDERED: ONDANSETRON 4 MG/2 ML VIAL IV PRN (16:29)
[2017-12-22] MEDS ORDERED: GLUCAGON 1 MG VIAL IM PRN (16:29)
[2017-12-22] MEDS ORDERED: Adalimumab [Humira] 40 MG SUBCUT SCH (16:29)
[2017-12-22] MEDS ORDERED: ENOXAPARIN 30 MG/0.3 ML SYRINGE SUBCUT SCH (16:29)
[2017-12-22] MEDS ORDERED: ACETAMINOPHEN 325 MG TABLET PO PRN (16:29)
[2017-12-22] MEDS ORDERED: DEXTROSE 50% 25 GM/50 ML VIAL IV PRN (16:29)
[2017-12-22] MEDS ORDERED: DICLOFENAC 1% GEL 100 GM TUBE TOP PRN (16:29)
[2017-12-22] MEDS ORDERED: PROTEASE PO SCH (17:00)
[2017-12-22] MEDS ORDERED: LIPASE PO SCH (17:00)
[2017-12-22] MEDS ORDERED: AMYLASE PO SCH (17:00)
[2017-12-22] MEDS: INSULIN REGULAR 100 UNIT/ML SUBCUT SCH (17:35)
[2017-12-22] MEDS ORDERED: INFLUENZA VIRUS VACCINE 0.5 ML SYRINGE IM ONE (19:42)
[2017-12-22] MEDS ORDERED: MORPHINE SULFATE 30 MG PO SCH (21:00)
[2017-12-22] MEDS ORDERED: ASPIRIN EC 81 MG TABLET PO SCH (21:00)
[2017-12-22] MEDS: SULFAMETHOX/TRIMETHOPRIM 800-160 MG TABLET PO SCH (21:13)
[2017-12-22] MEDS: CALCIUM (CARBONATE)/VITAMIN D 600 MG-400 UNIT TABLET PO SCH (21:13)
[2017-12-22] MEDS: GABAPENTIN 600 MG TABLET PO SCH (21:13)
[2017-12-22] MEDS: CYCLOBENZAPRINE 10 MG TABLET PO SCH (21:13)
[2017-12-22] MEDS: DOCUSATE SODIUM 100 MG CAPSULE PO SCH (21:13)
[2017-12-22] MEDS: COLESTIPOL 1 GM TABLET PO SCH (21:14)
[2017-12-22] MEDS: CELECOXIB 200 MG CAPSULE PO SCH (21:14)
[2017-12-22] MEDS: HYDROXYCHLOROQUINE 200 MG TABLET PO SCH (21:14)
[2017-12-22] MEDS: DULoxetine 30 MG CAPSULE PO SCH (21:14)
[2017-12-22] MEDS: MIRTAZAPINE 15 MG TABLET PO SCH (21:14)
[2017-12-22] MEDS: traZODone 50 MG TABLET PO SCH (21:14)
[2017-12-22] MEDS: MORPHINE ER 30 MG TABLET PO SCH (21:45)
[2017-12-22] MEDS ORDERED: METOPROLOL SUCCINATE XL 50 MG TABLET PO ONE (22:00)
[2017-12-23] MEDS: INSULIN REGULAR 100 UNIT/ML SUBCUT SCH ×5 (00:27→23:15)
[2017-12-23 05:14] LABS: Basophils % 0.7 % (0.0-0.8); Eosinophils # 0.4 10*3/uL (0.0-0.87); Eosinophils % 6.9 % (0.00-10.9); Hematocrit 31.4 VOL% (35.7-47.0); Hemoglobin 9.6 GM/DL (12.0-16.0); Immature Granulocytes % 0.5 %; Immature Granulocytes Absolute 0.03 #; Lymphocytes # 2.7 10*3/uL (1.4-4.0); Lymphocytes % 46.9 % (21.3-54.2); Mean Corpuscular HGB Conc 30.6 GM/DL (32-36); Mean Corpuscular Hemoglobin 32 PG (27-34); Mean Corpuscular Volume 103.6 FL (87-102); Mean Platelet Volume 10.4 FL (9.6-12.0); Monocytes # 0.5 10*3/uL (0.11-0.8); Monocytes % 9.3 % (1.7-12.7); Neutrophils # 2.1 10*3/uL (1.4-7.4); Neutrophils % 35.7 % (38.7-73.9); Platelet Count 211 T/CUMM (130-400); Red Blood Count 3.03 MC/CUMM (3.8-5.5); Red Cell Distribution Width 14.2 % (9.3-17.3); White Blood Count 5.8 T/CUMM (4-12)
[2017-12-23 05:31] LABS: Albumin 2.7 G/DL (3.4-5.0); Bilirubin,Total 0.4 MG/DL (0.2-1.0); Calcium 9.2 MG/DL (8.5-10.1); Osmolality,Calculated 287.1 MOS/KG (273-304); Potassium 5.1 MMOL/L (3.5-5.1); Total Protein 6.4 G/DL (6.4-8.3)
[2017-12-23 05:37] LABS: Eosinophils 6 % (0-10); Hypochromasia 1+; Lymphocytes 50 % (20-55); Ovalocytes Slight; Platelet Estimate Adequate; Segmented Neutrophils 32 % (50-85); Total Cells Counted 100
[2017-12-23 05:38] LABS: Atypical Lymphocytes Few
[2017-12-23] MEDS: LEVOTHYROXINE 88 MCG TABLET PO SCH (06:22)
[2017-12-23] MEDS: DOCUSATE SODIUM 100 MG CAPSULE PO SCH ×2 (08:35→20:50)
[2017-12-23] MEDS: MORPHINE ER 30 MG TABLET PO SCH ×2 (08:36→20:49)
[2017-12-23] MEDS: HYDROXYCHLOROQUINE 200 MG TABLET PO SCH ×2 (08:36→20:13)
[2017-12-23] MEDS: CHOLECALCIFEROL 1,000 UNIT TABLET PO SCH (08:36)
[2017-12-23] MEDS: CYCLOBENZAPRINE 10 MG TABLET PO SCH ×3 (08:36→20:50)
[2017-12-23] MEDS: GABAPENTIN 600 MG TABLET PO SCH ×3 (08:37→20:49)
[2017-12-23] MEDS: COLESTIPOL 1 GM TABLET PO SCH ×2 (08:37→20:49)
[2017-12-23] MEDS: CALCIUM (CARBONATE)/VITAMIN D 600 MG-400 UNIT TABLET PO SCH ×2 (08:37→20:49)
[2017-12-23] MEDS: FERROUS SULFATE 325 MG TABLET PO SCH (08:37)
[2017-12-23] MEDS: CELECOXIB 200 MG CAPSULE PO SCH ×2 (08:37→20:49)
[2017-12-23] MEDS: SULFAMETHOX/TRIMETHOPRIM 800-160 MG TABLET PO SCH (08:37)
[2017-12-23] MEDS: LISINOPRIL 2.5 MG TABLET PO SCH (08:56)
[2017-12-23] MEDS: FUROSEMIDE 40 MG TABLET PO SCH (08:56)
[2017-12-23] MEDS: PANTOPRAZOLE 40 MG VIAL IV SCH (08:56)
[2017-12-23] MEDS: LACTOBACILLUS ACIDOPHILUS/BULGARICUS CAPLET PO SCH (09:15)
[2017-12-23] MEDS: CYANOCOBALAMIN 500 MCG TABLET PO SCH (09:15)
[2017-12-23] MEDS: cefTRIAXone 1,000 MG in SYRINGE 1 EACH IV SCH (13:21)
[2017-12-23] MEDS: MIRTAZAPINE 15 MG TABLET PO SCH (20:49)
[2017-12-23] MEDS: traZODone 50 MG TABLET PO SCH (20:50)
[2017-12-23] MEDS: DULoxetine 30 MG CAPSULE PO SCH (20:50)
[2017-12-24] MEDS: INSULIN REGULAR 100 UNIT/ML SUBCUT SCH ×3 (05:34→18:40)
[2017-12-24 05:44] LABS: Basophils # 0.1 10*3/uL (0.0-0.2); Basophils % 0.8 % (0.0-0.8); Eosinophils # 0.4 10*3/uL (0.0-0.87); Eosinophils % 6.2 % (0.00-10.9); Hematocrit 31.3 VOL% (35.7-47.0); Hemoglobin 9.5 GM/DL (12.0-16.0); Immature Granulocytes % 0.3 %; Immature Granulocytes Absolute 0.02 #; Lymphocytes # 2.9 10*3/uL (1.4-4.0); Lymphocytes % 46.4 % (21.3-54.2); Mean Corpuscular HGB Conc 30.4 GM/DL (32-36); Mean Corpuscular Hemoglobin 32 PG (27-34); Mean Platelet Volume 10.2 FL (9.6-12.0); Monocytes # 0.7 10*3/uL (0.11-0.8); Monocytes % 10.9 % (1.7-12.7); Neutrophils # 2.2 10*3/uL (1.4-7.4); Neutrophils % 35.4 % (38.7-73.9); Platelet Count 183 T/CUMM (130-400); Red Blood Count 2.98 MC/CUMM (3.8-5.5); Red Cell Distribution Width 14.1 % (9.3-17.3); White Blood Count 6.3 T/CUMM (4-12)
[2017-12-24 06:05] LABS: Calcium 8.9 MG/DL (8.5-10.1); Osmolality,Calculated 290.1 MOS/KG (273-304); Potassium 5.1 MMOL/L (3.5-5.1)
[2017-12-24 06:11] LABS: Eosinophils 6 % (0-10); Hypochromasia Slight; Lymphocytes 55 % (20-55); Platelet Estimate Normal; Polychromasia Few; Segmented Neutrophils 34 % (50-85); Total Cells Counted 100
[2017-12-24] MEDS: LEVOTHYROXINE 88 MCG TABLET PO SCH (06:35)
[2017-12-24] MEDS: LACTOBACILLUS ACIDOPHILUS/BULGARICUS CAPLET PO SCH (08:47)
[2017-12-24] MEDS: CALCIUM (CARBONATE)/VITAMIN D 600 MG-400 UNIT TABLET PO SCH ×2 (08:47→21:01)
[2017-12-24] MEDS: CELECOXIB 200 MG CAPSULE PO SCH ×2 (08:47→21:05)
[2017-12-24] MEDS: FERROUS SULFATE 325 MG TABLET PO SCH (08:48)
[2017-12-24] MEDS: FUROSEMIDE 40 MG TABLET PO SCH (08:48)
[2017-12-24] MEDS: DOCUSATE SODIUM 100 MG CAPSULE PO SCH ×2 (08:48→21:01)
[2017-12-24] MEDS: CYCLOBENZAPRINE 10 MG TABLET PO SCH ×3 (08:48→21:02)
[2017-12-24] MEDS: MORPHINE ER 30 MG TABLET PO SCH ×2 (08:48→21:02)
[2017-12-24] MEDS: COLESTIPOL 1 GM TABLET PO SCH ×2 (08:48→21:01)
[2017-12-24] MEDS: LISINOPRIL 2.5 MG TABLET PO SCH (08:49)
[2017-12-24] MEDS: GABAPENTIN 600 MG TABLET PO SCH ×3 (08:49→21:01)
[2017-12-24] MEDS: CHOLECALCIFEROL 1,000 UNIT TABLET PO SCH (08:50)
[2017-12-24] MEDS: CYANOCOBALAMIN 500 MCG TABLET PO SCH (08:50)
[2017-12-24] MEDS: PANTOPRAZOLE 40 MG VIAL IV SCH (10:45)
[2017-12-24] MEDS ORDERED: ROPIVACAINE 0.5% 30 ML VIAL ONE (12:09)
[2017-12-24] MEDS ORDERED: TISSUE ADHESIVE 1 EACH APPLICATOR TOP ONE (12:12)
[2017-12-24] MEDS: cefTRIAXone 1,000 MG in SYRINGE 1 EACH IV SCH (12:25)
[2017-12-24] MEDS ORDERED: fentaNYL 100 MCG/2 ML VIAL ONE (13:30)
[2017-12-24] MEDS ORDERED: PROPOFOL 200 MG/20 ML VIAL IV ONE (13:30)
[2017-12-24] MEDS ORDERED: ETOMIDATE 40 MG/20 ML VIAL IV ONE (13:31)
[2017-12-24] MEDS ORDERED: MEPERIDINE 25 MG/1 ML VIAL ONE ×2 (13:39→13:59)
[2017-12-24] MEDS ORDERED: ONDANSETRON 4 MG/2 ML VIAL ONE (13:39)
[2017-12-24] MEDS ORDERED: ONDANSETRON 4 MG/2 ML VIAL IV PRN (13:40)
[2017-12-24] MEDS: MEPERIDINE 25 MG/1 ML VIAL IV PRN ×2 (13:46→14:01)
[2017-12-24] MEDS: SODIUM CHLORIDE 0.9% 1,000 ML IV SCH (15:58)
[2017-12-24] MEDS: HYDROmorphone 2 MG/1 ML VIAL IV PRN (18:52)
[2017-12-24] MEDS: traZODone 50 MG TABLET PO SCH (21:02)
[2017-12-24] MEDS: DULoxetine 30 MG CAPSULE PO SCH (21:02)
[2017-12-24] MEDS: MIRTAZAPINE 15 MG TABLET PO SCH (21:02)
[2017-12-24] MEDS: METOPROLOL SUCCINATE XL 50 MG TABLET PO SCH ×4 (21:05→21:52)
[2017-12-25] MEDS: INSULIN REGULAR 100 UNIT/ML SUBCUT SCH ×4 (00:03→17:24)
[2017-12-25] MEDS: HYDROmorphone 2 MG/1 ML VIAL IV PRN ×2 (04:39→08:23)
[2017-12-25 05:30] LABS: Basophils # 0.1 10*3/uL (0.0-0.2); Eosinophils # 0.3 10*3/uL (0.0-0.87); Eosinophils % 5.8 % (0.00-10.9); Hematocrit 32.4 VOL% (35.7-47.0); Hemoglobin 9.8 GM/DL (12.0-16.0); Immature Granulocytes % 0.7 %; Immature Granulocytes Absolute 0.04 #; Lymphocytes # 2.9 10*3/uL (1.4-4.0); Lymphocytes % 49.7 % (21.3-54.2); Mean Corpuscular HGB Conc 30.2 GM/DL (32-36); Mean Corpuscular Hemoglobin 32 PG (27-34); Mean Corpuscular Volume 104.9 FL (87-102); Mean Platelet Volume 10.8 FL (9.6-12.0); Monocytes # 0.6 10*3/uL (0.11-0.8); Monocytes % 10.5 % (1.7-12.7); Neutrophils # 1.9 10*3/uL (1.4-7.4); Neutrophils % 32.3 % (38.7-73.9); Platelet Count 191 T/CUMM (130-400); Red Blood Count 3.09 MC/CUMM (3.8-5.5); White Blood Count 5.8 T/CUMM (4-12)
[2017-12-25] MEDS: LEVOTHYROXINE 88 MCG TABLET PO SCH (05:32)
[2017-12-25 05:50] LABS: Calcium 8.8 MG/DL (8.5-10.1); Potassium 4.6 MMOL/L (3.5-5.1)
[2017-12-25 05:55] LABS: Eosinophils 12 % (0-10); Lymphocytes 51 % (20-55); Platelet Estimate Adequate; Polychromasia Few; Segmented Neutrophils 31 % (50-85); Total Cells Counted 100
[2017-12-25] MEDS: METOPROLOL SUCCINATE XL 50 MG TABLET PO SCH ×4 (06:30→21:14)
[2017-12-25] MEDS: PANTOPRAZOLE 40 MG VIAL IV SCH (08:26)
[2017-12-25] MEDS: CHOLECALCIFEROL 1,000 UNIT TABLET PO SCH (08:49)
[2017-12-25] MEDS: ESCITALOPRAM 10 MG TABLET PO PRN (08:49)
[2017-12-25] MEDS: COLESTIPOL 1 GM TABLET PO SCH ×2 (08:50→21:12)
[2017-12-25] MEDS: DOCUSATE SODIUM 100 MG CAPSULE PO SCH ×2 (08:50→21:12)
[2017-12-25] MEDS: LISINOPRIL 2.5 MG TABLET PO SCH (08:50)
[2017-12-25] MEDS: LACTOBACILLUS ACIDOPHILUS/BULGARICUS CAPLET PO SCH (08:50)
[2017-12-25] MEDS: CELECOXIB 200 MG CAPSULE PO SCH ×2 (08:50→21:12)
[2017-12-25] MEDS: FERROUS SULFATE 325 MG TABLET PO SCH (08:50)
[2017-12-25] MEDS: GABAPENTIN 600 MG TABLET PO SCH ×3 (08:50→21:12)
[2017-12-25] MEDS: CYANOCOBALAMIN 500 MCG TABLET PO SCH (08:50)
[2017-12-25] MEDS: CYCLOBENZAPRINE 10 MG TABLET PO SCH ×3 (08:50→21:12)
[2017-12-25] MEDS: CALCIUM (CARBONATE)/VITAMIN D 600 MG-400 UNIT TABLET PO SCH ×2 (08:50→21:13)
[2017-12-25] MEDS: MORPHINE ER 30 MG TABLET PO SCH ×2 (08:51→21:13)
[2017-12-25] MEDS: SODIUM CHLORIDE 0.9% 1,000 ML IV SCH (09:50)
[2017-12-25] MEDS ORDERED: MAGNESIUM SULF RIDER 2 GM in PREMIX 1 EACH IV PRN (10:13)
[2017-12-25] MEDS ORDERED: MAGNESIUM SULF RIDER 4 GM in PREMIX 1 EACH IV PRN (10:13)
[2017-12-25] MEDS: SCOPOLAMINE 1.5 MG PATCH TRANSDERM SCH (10:35)
[2017-12-25] MEDS ORDERED: METOPROLOL SUCCINATE XL 50 MG TABLET PO ONE (11:16)
[2017-12-25 11:25] LABS: Troponin I < 0.015 NG/ML (0.00-0.045)
[2017-12-25] MEDS: methylPREDNISolone SOD SUC 40 MG/1 ML VIAL IV SCH (12:31)
[2017-12-25] MEDS: cefTRIAXone 1,000 MG in SYRINGE 1 EACH IV SCH (12:42)
[2017-12-25] MEDS: CETIRIZINE 5 MG TABLET PO SCH (12:43)
[2017-12-25] MEDS: ASCORBIC ACID 500 MG TABLET PO SCH ×2 (13:24→21:12)
[2017-12-25] MEDS ORDERED: SODIUM CHLORIDE 0.9% 500 ML IV ONE ×2 (14:16→15:30)
[2017-12-25] MEDS: DULoxetine 30 MG CAPSULE PO SCH (21:13)
[2017-12-25] MEDS: MIRTAZAPINE 15 MG TABLET PO SCH (21:14)
[2017-12-25] MEDS: traZODone 50 MG TABLET PO SCH (21:14)
[2017-12-25 21:41] LABS: TB2 Ag Minus Result -0.06 IU/mL
[2017-12-26] MEDS: methylPREDNISolone SOD SUC 40 MG/1 ML VIAL IV SCH ×2 (00:40→12:18)
[2017-12-26] MEDS: INSULIN REGULAR 100 UNIT/ML SUBCUT SCH ×4 (00:52→18:21)
[2017-12-26] MEDS: SODIUM CHLORIDE 0.9% 1,000 ML IV SCH (05:39)
[2017-12-26 05:48] LABS: Basophils % 0.8 % (0.0-0.8); Eosinophils # 0.1 10*3/uL (0.0-0.87); Hematocrit 32.4 VOL% (35.7-47.0); Immature Granulocytes Absolute 0.05 #; Lymphocytes # 2.2 10*3/uL (1.4-4.0); Lymphocytes % 43.7 % (21.3-54.2); Mean Corpuscular HGB Conc 30.9 GM/DL (32-36); Mean Corpuscular Hemoglobin 32 PG (27-34); Mean Corpuscular Volume 104.5 FL (87-102); Mean Platelet Volume 10.7 FL (9.6-12.0); Monocytes # 0.2 10*3/uL (0.11-0.8); Monocytes % 4.3 % (1.7-12.7); Neutrophils # 2.5 10*3/uL (1.4-7.4); Neutrophils % 49.2 % (38.7-73.9); Platelet Count 173 T/CUMM (130-400); Red Cell Distribution Width 13.7 % (9.3-17.3); White Blood Count 5.1 T/CUMM (4-12)
[2017-12-26] MEDS: LEVOTHYROXINE 88 MCG TABLET PO SCH (05:55)
[2017-12-26 06:06] LABS: Calcium 9.2 MG/DL (8.5-10.1); Potassium 5.1 MMOL/L (3.5-5.1)
[2017-12-26 06:47] LABS: Risk Ratio 2.44
[2017-12-26] MEDS: METOPROLOL SUCCINATE XL 50 MG TABLET PO SCH ×3 (10:11→21:32)
[2017-12-26] MEDS: LACTOBACILLUS ACIDOPHILUS/BULGARICUS CAPLET PO SCH (10:11)
[2017-12-26] MEDS: GABAPENTIN 600 MG TABLET PO SCH ×3 (10:11→21:31)
[2017-12-26] MEDS: FERROUS SULFATE 325 MG TABLET PO SCH (10:11)
[2017-12-26] MEDS: ASCORBIC ACID 500 MG TABLET PO SCH (10:11)
[2017-12-26] MEDS: PANTOPRAZOLE 40 MG TABLET PO SCH (10:11)
[2017-12-26] MEDS: CHOLECALCIFEROL 1,000 UNIT TABLET PO SCH (10:12)
[2017-12-26] MEDS: CELECOXIB 200 MG CAPSULE PO SCH ×2 (10:12→21:32)
[2017-12-26] MEDS: CETIRIZINE 5 MG TABLET PO SCH (10:12)
[2017-12-26] MEDS: CYCLOBENZAPRINE 10 MG TABLET PO SCH ×3 (10:12→21:32)
[2017-12-26] MEDS: CYANOCOBALAMIN 500 MCG TABLET PO SCH (10:12)
[2017-12-26] MEDS: CALCIUM (CARBONATE)/VITAMIN D 600 MG-400 UNIT TABLET PO SCH ×2 (10:12→21:28)
[2017-12-26] MEDS: DOCUSATE SODIUM 100 MG CAPSULE PO SCH ×2 (10:12→21:30)
[2017-12-26] MEDS: COLESTIPOL 1 GM TABLET PO SCH ×2 (10:12→21:30)
[2017-12-26] MEDS: NYSTATIN 500,000 UNIT/5 ML UDCUP SWISH/SWAL SCH ×3 (10:13→21:34)
[2017-12-26] MEDS: MORPHINE ER 30 MG TABLET PO SCH ×2 (10:46→21:32)
[2017-12-26] MEDS: cefTRIAXone 1,000 MG in SYRINGE 1 EACH IV SCH (12:18)
[2017-12-26] MEDS ORDERED: TUBERCULIN SKIN TEST 0.1 ML SYRINGE INTRADERM ONE (16:00)
[2017-12-26] MEDS: DULoxetine 30 MG CAPSULE PO SCH (21:29)
[2017-12-26] MEDS: MIRTAZAPINE 15 MG TABLET PO SCH (21:30)
[2017-12-26] MEDS: traZODone 50 MG TABLET PO SCH (21:31)
[2017-12-27] MEDS: INSULIN REGULAR 100 UNIT/ML SUBCUT SCH ×4 (00:04→18:10)
[2017-12-27] MEDS: ASCORBIC ACID 500 MG TABLET PO SCH ×3 (00:04→20:36)
[2017-12-27] MEDS: methylPREDNISolone SOD SUC 40 MG/1 ML VIAL IV SCH ×2 (00:05→12:32)
[2017-12-27] MEDS: SODIUM CHLORIDE 0.9% 1,000 ML IV SCH ×2 (01:34→21:34)
[2017-12-27 05:47] LABS: Basophils % 0.7 % (0.0-0.8); Hematocrit 31.5 VOL% (35.7-47.0); Hemoglobin 9.7 GM/DL (12.0-16.0); Immature Granulocytes % 1.2 %; Immature Granulocytes Absolute 0.05 #; Lymphocytes # 1.4 10*3/uL (1.4-4.0); Lymphocytes % 34.4 % (21.3-54.2); Mean Corpuscular HGB Conc 30.8 GM/DL (32-36); Mean Corpuscular Hemoglobin 32 PG (27-34); Mean Corpuscular Volume 102.6 FL (87-102); Mean Platelet Volume 10.2 FL (9.6-12.0); Monocytes # 0.2 10*3/uL (0.11-0.8); Monocytes % 4.6 % (1.7-12.7); Neutrophils # 2.4 10*3/uL (1.4-7.4); Neutrophils % 58.1 % (38.7-73.9); Platelet Count 189 T/CUMM (130-400); Red Blood Count 3.07 MC/CUMM (3.8-5.5); Red Cell Distribution Width 13.8 % (9.3-17.3); White Blood Count 4.1 T/CUMM (4-12)
[2017-12-27 06:04] LABS: Calcium 8.8 MG/DL (8.5-10.1); Osmolality,Calculated 289.1 MOS/KG (273-304); Potassium 4.9 MMOL/L (3.5-5.1)
[2017-12-27] MEDS: LEVOTHYROXINE 88 MCG TABLET PO SCH (06:38)
[2017-12-27] MEDS: NYSTATIN 500,000 UNIT/5 ML UDCUP SWISH/SWAL SCH ×3 (06:39→22:34)
[2017-12-27] MEDS: LACTOBACILLUS ACIDOPHILUS/BULGARICUS CAPLET PO SCH (10:23)
[2017-12-27] MEDS: CELECOXIB 200 MG CAPSULE PO SCH ×2 (10:24→20:36)
[2017-12-27] MEDS: METOPROLOL SUCCINATE XL 50 MG TABLET PO SCH ×3 (10:24→20:37)
[2017-12-27] MEDS: PANTOPRAZOLE 40 MG TABLET PO SCH (10:25)
[2017-12-27] MEDS: CALCIUM (CARBONATE)/VITAMIN D 600 MG-400 UNIT TABLET PO SCH ×2 (10:25→20:36)
[2017-12-27] MEDS: DOCUSATE SODIUM 100 MG CAPSULE PO SCH ×2 (10:26→20:35)
[2017-12-27] MEDS: FUROSEMIDE 40 MG TABLET PO SCH (10:27)
[2017-12-27] MEDS: GABAPENTIN 600 MG TABLET PO SCH ×3 (10:27→20:37)
[2017-12-27] MEDS: MORPHINE ER 30 MG TABLET PO SCH ×2 (10:27→20:35)
[2017-12-27] MEDS: CYCLOBENZAPRINE 10 MG TABLET PO SCH ×3 (10:28→20:36)
[2017-12-27] MEDS: CETIRIZINE 5 MG TABLET PO SCH (10:28)
[2017-12-27] MEDS: COLESTIPOL 1 GM TABLET PO SCH ×2 (10:28→20:35)
[2017-12-27] MEDS: CHOLECALCIFEROL 1,000 UNIT TABLET PO SCH (10:29)
[2017-12-27] MEDS: CYANOCOBALAMIN 500 MCG TABLET PO SCH (10:29)
[2017-12-27] MEDS: FERROUS SULFATE 325 MG TABLET PO SCH (10:32)
[2017-12-27] MEDS: cefTRIAXone 1,000 MG in SYRINGE 1 EACH IV SCH (12:32)
[2017-12-27] MEDS: traZODone 50 MG TABLET PO SCH (20:35)
[2017-12-27] MEDS: MIRTAZAPINE 15 MG TABLET PO SCH (20:36)
[2017-12-27] MEDS: DULoxetine 30 MG CAPSULE PO SCH (20:37)
[2017-12-28] MEDS: methylPREDNISolone SOD SUC 40 MG/1 ML VIAL IV SCH ×2 (00:23→12:58)
[2017-12-28] MEDS: INSULIN REGULAR 100 UNIT/ML SUBCUT SCH ×4 (00:23→18:45)
[2017-12-28] MEDS: NYSTATIN 500,000 UNIT/5 ML UDCUP SWISH/SWAL SCH ×3 (05:44→21:07)
[2017-12-28] MEDS: LEVOTHYROXINE 88 MCG TABLET PO SCH (05:44)
[2017-12-28 06:23] LABS: Basophils % 0.4 % (0.0-0.8); Eosinophils % 0.6 % (0.00-10.9); Hematocrit 30.8 VOL% (35.7-47.0); Hemoglobin 9.6 GM/DL (12.0-16.0); Immature Granulocytes % 1.8 %; Immature Granulocytes Absolute 0.09 #; Lymphocytes # 1.4 10*3/uL (1.4-4.0); Lymphocytes % 27.3 % (21.3-54.2); Mean Corpuscular HGB Conc 31.2 GM/DL (32-36); Mean Corpuscular Hemoglobin 32 PG (27-34); Mean Corpuscular Volume 103.7 FL (87-102); Mean Platelet Volume 10.3 FL (9.6-12.0); Monocytes # 0.2 10*3/uL (0.11-0.8); Monocytes % 3.6 % (1.7-12.7); Neutrophils # 3.4 10*3/uL (1.4-7.4); Neutrophils % 66.3 % (38.7-73.9); Platelet Count 191 T/CUMM (130-400); Red Blood Count 2.97 MC/CUMM (3.8-5.5); Red Cell Distribution Width 14.1 % (9.3-17.3); White Blood Count 5.1 T/CUMM (4-12)
[2017-12-28 06:39] LABS: Osmolality,Calculated 289.1 MOS/KG (273-304); Potassium 4.8 MMOL/L (3.5-5.1)
[2017-12-28] MEDS: MORPHINE ER 30 MG TABLET PO SCH ×2 (08:50→20:24)
[2017-12-28] MEDS: SCOPOLAMINE 1.5 MG PATCH TRANSDERM SCH (08:50)
[2017-12-28] MEDS: COLESTIPOL 1 GM TABLET PO SCH ×2 (08:50→20:24)
[2017-12-28] MEDS: LACTOBACILLUS ACIDOPHILUS/BULGARICUS CAPLET PO SCH (08:51)
[2017-12-28] MEDS: CYANOCOBALAMIN 500 MCG TABLET PO SCH (08:51)
[2017-12-28] MEDS: CHOLECALCIFEROL 1,000 UNIT TABLET PO SCH (08:51)
[2017-12-28] MEDS: FERROUS SULFATE 325 MG TABLET PO SCH (08:51)
[2017-12-28] MEDS: GABAPENTIN 600 MG TABLET PO SCH ×3 (08:51→21:08)
[2017-12-28] MEDS: CELECOXIB 200 MG CAPSULE PO SCH ×2 (08:51→20:23)
[2017-12-28] MEDS: CETIRIZINE 5 MG TABLET PO SCH (08:51)
[2017-12-28] MEDS: ASCORBIC ACID 500 MG TABLET PO SCH ×2 (08:51→20:23)
[2017-12-28] MEDS: FUROSEMIDE 40 MG TABLET PO SCH (08:52)
[2017-12-28] MEDS: PANTOPRAZOLE 40 MG TABLET PO SCH (08:52)
[2017-12-28] MEDS: CYCLOBENZAPRINE 10 MG TABLET PO SCH ×3 (08:52→20:24)
[2017-12-28] MEDS: DOCUSATE SODIUM 100 MG CAPSULE PO SCH ×2 (08:52→20:23)
[2017-12-28] MEDS: METOPROLOL SUCCINATE XL 50 MG TABLET PO SCH ×3 (08:52→21:08)
[2017-12-28] MEDS: CALCIUM (CARBONATE)/VITAMIN D 600 MG-400 UNIT TABLET PO SCH ×2 (08:52→20:24)
[2017-12-28] MEDS: cefTRIAXone 1,000 MG in SYRINGE 1 EACH IV SCH (12:58)
[2017-12-28] MEDS: SODIUM CHLORIDE 0.9% 1,000 ML IV SCH (18:21)
[2017-12-28] MEDS: MIRTAZAPINE 15 MG TABLET PO SCH (20:23)
[2017-12-28] MEDS: DULoxetine 30 MG CAPSULE PO SCH (20:24)
[2017-12-28] MEDS: traZODone 50 MG TABLET PO SCH (20:24)
[2017-12-29] MEDS: INSULIN REGULAR 100 UNIT/ML SUBCUT SCH ×4 (00:10→18:14)
[2017-12-29] MEDS: methylPREDNISolone SOD SUC 40 MG/1 ML VIAL IV SCH ×3 (00:10→23:36)
[2017-12-29 04:34] LABS: Basophils % 0.4 % (0.0-0.8); Eosinophils % 0.6 % (0.00-10.9); Hemoglobin 9.8 GM/DL (12.0-16.0); Immature Granulocytes % 1.7 %; Immature Granulocytes Absolute 0.09 #; Lymphocytes # 1.6 10*3/uL (1.4-4.0); Lymphocytes % 29.7 % (21.3-54.2); Mean Corpuscular HGB Conc 30.6 GM/DL (32-36); Mean Corpuscular Hemoglobin 32 PG (27-34); Mean Corpuscular Volume 103.9 FL (87-102); Mean Platelet Volume 10.5 FL (9.6-12.0); Monocytes # 0.3 10*3/uL (0.11-0.8); Neutrophils # 3.3 10*3/uL (1.4-7.4); Neutrophils % 62.6 % (38.7-73.9); Platelet Count 198 T/CUMM (130-400); Red Blood Count 3.08 MC/CUMM (3.8-5.5); Red Cell Distribution Width 14.1 % (9.3-17.3); White Blood Count 5.3 T/CUMM (4-12)
[2017-12-29 04:35] LABS: Osmolality,Calculated 286.3 MOS/KG (273-304); Potassium 4.6 MMOL/L (3.5-5.1)
[2017-12-29] MEDS: NYSTATIN 500,000 UNIT/5 ML UDCUP SWISH/SWAL SCH ×3 (05:35→21:57)
[2017-12-29] MEDS: LEVOTHYROXINE 88 MCG TABLET PO SCH (05:42)
[2017-12-29] MEDS: FERROUS SULFATE 325 MG TABLET PO SCH (08:24)
[2017-12-29] MEDS: FUROSEMIDE 40 MG TABLET PO SCH (08:24)
[2017-12-29] MEDS: ASCORBIC ACID 500 MG TABLET PO SCH ×2 (08:24→20:36)
[2017-12-29] MEDS: GABAPENTIN 600 MG TABLET PO SCH ×3 (08:24→20:35)
[2017-12-29] MEDS: CYANOCOBALAMIN 500 MCG TABLET PO SCH (08:24)
[2017-12-29] MEDS: CHOLECALCIFEROL 1,000 UNIT TABLET PO SCH (08:24)
[2017-12-29] MEDS: PANTOPRAZOLE 40 MG TABLET PO SCH (08:24)
[2017-12-29] MEDS: MORPHINE ER 30 MG TABLET PO SCH ×2 (08:25→20:37)
[2017-12-29] MEDS: CELECOXIB 200 MG CAPSULE PO SCH ×2 (08:25→20:35)
[2017-12-29] MEDS: COLESTIPOL 1 GM TABLET PO SCH ×2 (08:25→20:36)
[2017-12-29] MEDS: CALCIUM (CARBONATE)/VITAMIN D 600 MG-400 UNIT TABLET PO SCH ×2 (08:25→20:36)
[2017-12-29] MEDS: CYCLOBENZAPRINE 10 MG TABLET PO SCH ×3 (08:25→20:38)
[2017-12-29] MEDS: DOCUSATE SODIUM 100 MG CAPSULE PO SCH ×2 (08:26→20:37)
[2017-12-29] MEDS: LACTOBACILLUS ACIDOPHILUS/BULGARICUS CAPLET PO SCH (08:26)
[2017-12-29] MEDS: METOPROLOL SUCCINATE XL 50 MG TABLET PO SCH ×5 (08:26→23:41)
[2017-12-29] MEDS: ESCITALOPRAM 10 MG TABLET PO PRN (08:27)
[2017-12-29] MEDS: CETIRIZINE 5 MG TABLET PO SCH (08:39)
[2017-12-29] MEDS: cefTRIAXone 1,000 MG in SYRINGE 1 EACH IV SCH (11:41)
[2017-12-29] MEDS: SODIUM CHLORIDE 0.9% 1,000 ML IV SCH (14:44)
[2017-12-29] MEDS: DULoxetine 30 MG CAPSULE PO SCH (20:36)
[2017-12-29] MEDS: MIRTAZAPINE 15 MG TABLET PO SCH (20:36)
[2017-12-29] MEDS: traZODone 50 MG TABLET PO SCH (20:37)
[2017-12-30] MEDS: INSULIN REGULAR 100 UNIT/ML SUBCUT SCH ×2 (00:03→06:14)
[2017-12-30] MEDS: LEVOTHYROXINE 88 MCG TABLET PO SCH (06:11)
[2017-12-30] MEDS: NYSTATIN 500,000 UNIT/5 ML UDCUP SWISH/SWAL SCH (06:11)
[2017-12-30] MEDS: CETIRIZINE 5 MG TABLET PO SCH (09:20)
[2017-12-30] MEDS: CYANOCOBALAMIN 500 MCG TABLET PO SCH (09:20)
[2017-12-30] MEDS: FUROSEMIDE 40 MG TABLET PO SCH (09:20)
[2017-12-30] MEDS: GABAPENTIN 600 MG TABLET PO SCH (09:20)
[2017-12-30] MEDS: PANTOPRAZOLE 40 MG TABLET PO SCH (09:20)
[2017-12-30] MEDS: DOCUSATE SODIUM 100 MG CAPSULE PO SCH (09:21)
[2017-12-30] MEDS: CALCIUM (CARBONATE)/VITAMIN D 600 MG-400 UNIT TABLET PO SCH (09:21)
[2017-12-30] MEDS: METOPROLOL SUCCINATE XL 50 MG TABLET PO SCH (09:21)
[2017-12-30] MEDS: ASCORBIC ACID 500 MG TABLET PO SCH (09:21)
[2017-12-30] MEDS: COLESTIPOL 1 GM TABLET PO SCH (09:21)
[2017-12-30] MEDS: FERROUS SULFATE 325 MG TABLET PO SCH (09:22)
[2017-12-30] MEDS: CYCLOBENZAPRINE 10 MG TABLET PO SCH (09:22)
[2017-12-30] MEDS: MORPHINE ER 30 MG TABLET PO SCH (09:22)
[2017-12-30] MEDS: LACTOBACILLUS ACIDOPHILUS/BULGARICUS CAPLET PO SCH (09:22)
[2017-12-30] MEDS: CELECOXIB 200 MG CAPSULE PO SCH (09:22)
[2017-12-30] MEDS: CHOLECALCIFEROL 1,000 UNIT TABLET PO SCH (11:46)
[2017-12-30] MEDS ORDERED: POLYETHYLENE GLYCOL POWDER 17 GM PACK PO ONE (12:41)
[2017-12-30] MEDS ORDERED: BISACODYL 10 MG SUPP RECTAL ONE (12:42)
[2017-12-30 14:04] VITALS: BP 120/65
== END 2017-12-30 13:45 | disposition swing bed (61) | DRG 478 ==
LOC: N.ED 08:20 → N.EDINP 08:20 → N.3E 16:25
PROVIDERS: ADMIT Family Medicine; ATTEND Family Medicine

== ENCOUNTER 2018-10-08 10:47 | Inpatient (IN) ==
[2018-10-08] MEDS ORDERED: SODIUM CHLORIDE 0.9% 1,000 ML IV STA (11:19)
[2018-10-08] MEDS ORDERED: VANCOMYCIN INJ 1,250 MG in SODIUM CHLORIDE 0.9% 250 ML IV STA (11:19)
[2018-10-08 11:51] LABS: Basophils # 0.1 10*3/uL (0.0-0.2); Basophils % 0.7 % (0.0-0.8); Eosinophils # 0.1 10*3/uL (0.0-0.87); Eosinophils % 1.5 % (0.00-10.9); Hematocrit 35.7 VOL% (35.7-47.0); Hemoglobin 11.3 GM/DL (12.0-16.0); Immature Granulocytes % 0.1 %; Immature Granulocytes Absolute 0.01 #; Lymphocytes # 0.9 10*3/uL (1.4-4.0); Lymphocytes % 13.8 % (21.3-54.2); Mean Corpuscular HGB Conc 31.7 GM/DL (32-36); Mean Platelet Volume 11.2 FL (9.6-12.0); Neutrophils % 75.9 % (38.7-73.9); Platelet Count 156 T/CUMM (130-400); Red Blood Count 3.72 MC/CUMM (3.8-5.5); Red Cell Distribution Width 13.9 % (9.3-17.3); White Blood Count 6.8 T/CUMM (4-12)
[2018-10-08 12:09] LABS: Albumin 2.5 G/DL (3.4-5.0); Bilirubin,Total 0.5 MG/DL (0.2-1.0); Calcium 8.7 MG/DL (8.5-10.1); Total Protein 6.2 G/DL (6.4-8.3)
[2018-10-08] MEDS ORDERED: guaiFENesin/DM ER 600-30 MG TABLET PO PRN (12:13)
[2018-10-08] MEDS ORDERED: NICOTINE 21 MG/24 HR PATCH TRANSDERM PRN (12:13)
[2018-10-08] MEDS ORDERED: ONDANSETRON 4 MG/2 ML VIAL IV PRN (12:13)
[2018-10-08] MEDS ORDERED: PROMETHAZINE 25 MG/1 ML VIAL IM PRN (12:13)
[2018-10-08] MEDS ORDERED: ACETAMINOPHEN 325 MG TABLET PO PRN (12:13)
[2018-10-08 12:14] LABS: Band Neutrophils 12 % (0-10); Eosinophils 1 % (0-10); Lymphocytes 14 % (20-55); Segmented Neutrophils 67 % (50-85); Total Cells Counted 100
[2018-10-08 12:15] LABS: Microcytosis Slight; Ovalocytes Slight; Platelet Estimate Adequate
[2018-10-08] MEDS ORDERED: METHOCARBAMOL 500 MG TABLET PO PRN (12:17)
[2018-10-08] MEDS ORDERED: SCOPOLAMINE 1.5 MG PATCH TRANSDERM PRN (12:17)
[2018-10-08] MEDS ORDERED: ENOXAPARIN 30 MG/0.3 ML SYRINGE SUBCUT SCH (12:30)
[2018-10-08] MEDS ORDERED: NON-FORMULARY MEDICATION (Adalimumab [Humira] 40 MG) SUBCUT SCH (12:30)
[2018-10-08] MEDS ORDERED: PANTOPRAZOLE 40 MG TABLET PO SCH (12:30)
[2018-10-08] MEDS ORDERED: HYDROCORTISONE 10 MG TABLET PO SCH (15:00)
[2018-10-08] MEDS: GABAPENTIN 600 MG TABLET PO SCH ×2 (15:02→20:43)
[2018-10-08] MEDS: SODIUM CHLORIDE 0.9% 1,000 ML IV SCH (15:14)
[2018-10-08] MEDS ORDERED: DEXTROSE 10% 250 ML BAG IV PRN (15:47)
[2018-10-08] MEDS ORDERED: GLUCAGON 1 MG VIAL IM PRN (15:47)
[2018-10-08] MEDS: INSULIN LISPRO 100 UNIT/ML SUBCUT SCH (17:09)
[2018-10-08] MEDS: CEFEPIME 1,000 MG in SODIUM CHLORIDE 0.9% 100 ML IV SCH (18:04)
[2018-10-08] MEDS: HYDROCORTISONE 100 MG VIAL IV SCH (18:05)
[2018-10-08] MEDS: CALCIUM (CARBONATE)/VITAMIN D 600 MG-400 UNIT TABLET PO SCH (20:42)
[2018-10-08] MEDS: MORPHINE ER 30 MG TABLET PO SCH (20:43)
[2018-10-08] MEDS: ASCORBIC ACID 500 MG TABLET PO SCH (20:43)
[2018-10-08] MEDS: LACTOBACILLUS ACIDOPHILUS/BULGARICUS CAPLET PO SCH (20:43)
[2018-10-08] MEDS: traZODone 50 MG TABLET PO SCH (20:43)
[2018-10-08] MEDS: ASPIRIN EC 81 MG TABLET PO SCH (20:43)
[2018-10-08] MEDS: PANTOPRAZOLE 40 MG TABLET PO SCH (20:43)
[2018-10-08] MEDS: MIRTAZAPINE 15 MG TABLET PO SCH (20:43)
[2018-10-08] MEDS: COLESTIPOL 1 GM TABLET PO SCH (20:44)
[2018-10-09] MEDS: INSULIN LISPRO 100 UNIT/ML SUBCUT SCH ×5 (00:18→22:12)
[2018-10-09] MEDS: HYDROCORTISONE 100 MG VIAL IV SCH ×3 (00:19→16:55)
[2018-10-09] MEDS: SODIUM CHLORIDE 0.9% 1,000 ML IV SCH (00:20)
[2018-10-09] MEDS: CEFEPIME 1,000 MG in SODIUM CHLORIDE 0.9% 100 ML IV SCH ×4 (00:24→22:02)
[2018-10-09 06:02] LABS: Basophils % 0.3 % (0.0-0.8); Hematocrit 35.7 VOL% (35.7-47.0); Hemoglobin 11.2 GM/DL (12.0-16.0); Immature Granulocytes % 0.6 %; Immature Granulocytes Absolute 0.04 #; Lymphocytes # 0.5 10*3/uL (1.4-4.0); Lymphocytes % 7.3 % (21.3-54.2); Mean Corpuscular HGB Conc 31.4 GM/DL (32-36); Mean Corpuscular Volume 95.5 FL (87-102); Mean Platelet Volume 11.3 FL (9.6-12.0); Monocytes % 4.7 % (1.7-12.7); Neutrophils % 87.1 % (38.7-73.9); Platelet Count 148 T/CUMM (130-400); Red Blood Count 3.74 MC/CUMM (3.8-5.5); Red Cell Distribution Width 13.8 % (9.3-17.3); White Blood Count 6.8 T/CUMM (4-12)
[2018-10-09 06:05] LABS: Apearance,Urine CLOUDY (Clear); Bilirubin,Urine Negative (Negative); Blood, Urine Small mg/dL (Negative); Glucose,Urine (UA) Negative (Negative); Hyaline Casts,Urine 13 /LPF (0-3); Ketones,Urine 20 mg/dL (Negative); Mucus,Urine Occasional /LPF (Occasional); Nitrite,Urine Negative (Negative); Protein,Urine Negative; RBC,Urine 3 /HPF (0-4); Renal Epithelial Cells,Urine Occasional /HPF (<1); Squamous Epithelial Cell,Urine Occasional /HPF (0-10); Urine Color Yellow (Yellow); Urine Specific Gravity 1.009 (1.001-1.035); Urine Urobilinogen < 2.0 EU/DL (0.2-1.0); WBC,Urine 52 /HPF (0-6)
[2018-10-09 06:24] LABS: Albumin 2.1 G/DL (3.4-5.0); Bilirubin,Total 0.7 MG/DL (0.2-1.0); Calcium 8.7 MG/DL (8.5-10.1); Osmolality,Calculated 295.3 MOS/KG (273-304); Total Protein 5.7 G/DL (6.4-8.3)
[2018-10-09] MEDS: LEVOTHYROXINE 88 MCG TABLET PO SCH (06:29)
[2018-10-09 07:23] LABS: Band Neutrophils 10 % (0-10); Hypochromasia 1+; Lymphocytes 10 % (20-55); Microcytosis Slight; Platelet Estimate Adequate; Segmented Neutrophils 76 % (50-85); Total Cells Counted 100
[2018-10-09] MEDS: SODIUM CHLORIDE 0.45% 1,000 ML IV SCH (08:16)
[2018-10-09] MEDS: GABAPENTIN 600 MG TABLET PO SCH ×3 (09:10→22:18)
[2018-10-09] MEDS: CYANOCOBALAMIN 500 MCG TABLET PO SCH (09:10)
[2018-10-09] MEDS: CHOLECALCIFEROL 1,000 UNIT TABLET PO SCH (09:10)
[2018-10-09] MEDS: LACTOBACILLUS ACIDOPHILUS/BULGARICUS CAPLET PO SCH ×2 (09:10→21:59)
[2018-10-09] MEDS: OMEGA 3 ACID ETHYL ESTERS 1 GM CAPSULE PO SCH (09:11)
[2018-10-09] MEDS: ESCITALOPRAM 10 MG TABLET PO SCH (09:11)
[2018-10-09] MEDS: FERROUS SULFATE 325 MG TABLET PO SCH (09:11)
[2018-10-09] MEDS: PANTOPRAZOLE 40 MG TABLET PO SCH ×2 (09:11→22:02)
[2018-10-09] MEDS: METOPROLOL SUCCINATE XL 50 MG TABLET PO SCH (09:11)
[2018-10-09] MEDS: ASCORBIC ACID 500 MG TABLET PO SCH ×2 (09:11→22:01)
[2018-10-09] MEDS: CALCIUM (CARBONATE)/VITAMIN D 600 MG-400 UNIT TABLET PO SCH ×2 (09:11→21:59)
[2018-10-09] MEDS: COLESTIPOL 1 GM TABLET PO SCH ×2 (09:11→21:59)
[2018-10-09] MEDS: MORPHINE ER 30 MG TABLET PO SCH ×2 (09:11→21:59)
[2018-10-09] MEDS: HYDROXYCHLOROQUINE 200 MG TABLET PO SCH (09:12)
[2018-10-09] MEDS ORDERED: HYDROmorphone 2 MG/1 ML VIAL IV PRN (10:13)
[2018-10-09] MEDS: ENOXAPARIN 40 MG/0.4 ML SYRINGE SUBCUT SCH (10:50)
[2018-10-09] MEDS: KETOROLAC 15 MG/1 ML VIAL IV SCH ×2 (10:50→22:01)
[2018-10-09] MEDS: VANCOMYCIN INJ 1,250 MG in SODIUM CHLORIDE 0.9% 250 ML IV SCH (10:53)
[2018-10-09] MEDS: ZENPEP PO SCH (11:48)
[2018-10-09] MEDS: traZODone 50 MG TABLET PO SCH (21:59)
[2018-10-09] MEDS: MIRTAZAPINE 15 MG TABLET PO SCH (22:00)
[2018-10-09] MEDS: ASPIRIN EC 81 MG TABLET PO SCH (22:01)
[2018-10-10] MEDS: HYDROCORTISONE 100 MG VIAL IV SCH ×2 (01:29→10:17)
[2018-10-10] MEDS: VANCOMYCIN INJ 1,250 MG in SODIUM CHLORIDE 0.9% 250 ML IV SCH (01:31)
[2018-10-10] MEDS: SODIUM CHLORIDE 0.45% 1,000 ML IV SCH ×2 (01:31→16:43)
[2018-10-10] MEDS: KETOROLAC 15 MG/1 ML VIAL IV SCH ×3 (03:11→16:40)
[2018-10-10] MEDS: CEFEPIME 1,000 MG in SODIUM CHLORIDE 0.9% 100 ML IV SCH ×3 (03:15→16:43)
[2018-10-10 05:29] LABS: Basophils % 0.3 % (0.0-0.8); Eosinophils % 0.1 % (0.00-10.9); Hematocrit 31.7 VOL% (35.7-47.0); Hemoglobin 9.8 GM/DL (12.0-16.0); Immature Granulocytes % 0.7 %; Immature Granulocytes Absolute 0.05 #; Lymphocytes # 0.6 10*3/uL (1.4-4.0); Lymphocytes % 8.1 % (21.3-54.2); Mean Corpuscular HGB Conc 30.9 GM/DL (32-36); Mean Corpuscular Volume 96.9 FL (87-102); Mean Platelet Volume 11.6 FL (9.6-12.0); Monocytes % 5.6 % (1.7-12.7); Neutrophils % 85.2 % (38.7-73.9); Platelet Count 157 T/CUMM (130-400); Red Blood Count 3.27 MC/CUMM (3.8-5.5); Red Cell Distribution Width 14.4 % (9.3-17.3); White Blood Count 6.8 T/CUMM (4-12)
[2018-10-10] MEDS: LEVOTHYROXINE 88 MCG TABLET PO SCH (05:29)
[2018-10-10 05:39] LABS: Calcium 8.8 MG/DL (8.5-10.1); Osmolality,Calculated 293.7 MOS/KG (273-304)
[2018-10-10 06:16] LABS: Anisocytosis 1+; Band Neutrophils 2 % (0-10); Lymphocytes 11 % (20-55); Platelet Estimate Adequate; Segmented Neutrophils 82 % (50-85); Total Cells Counted 100
[2018-10-10] MEDS: GABAPENTIN 600 MG TABLET PO SCH ×2 (10:15→16:42)
[2018-10-10] MEDS: ENOXAPARIN 40 MG/0.4 ML SYRINGE SUBCUT SCH (10:15)
[2018-10-10] MEDS: ASCORBIC ACID 500 MG TABLET PO SCH (10:16)
[2018-10-10] MEDS: CHOLECALCIFEROL 1,000 UNIT TABLET PO SCH (10:16)
[2018-10-10] MEDS: CALCIUM (CARBONATE)/VITAMIN D 600 MG-400 UNIT TABLET PO SCH (10:17)
[2018-10-10] MEDS: COLESTIPOL 1 GM TABLET PO SCH (10:17)
[2018-10-10] MEDS: ESCITALOPRAM 10 MG TABLET PO SCH (10:18)
[2018-10-10] MEDS: LACTOBACILLUS ACIDOPHILUS/BULGARICUS CAPLET PO SCH (10:18)
[2018-10-10] MEDS: PANTOPRAZOLE 40 MG TABLET PO SCH (10:18)
[2018-10-10] MEDS: METOPROLOL SUCCINATE XL 50 MG TABLET PO SCH (10:18)
[2018-10-10] MEDS: HYDROXYCHLOROQUINE 200 MG TABLET PO SCH (10:18)
[2018-10-10] MEDS: CYANOCOBALAMIN 500 MCG TABLET PO SCH (10:18)
[2018-10-10] MEDS: FERROUS SULFATE 325 MG TABLET PO SCH (10:19)
[2018-10-10] MEDS: OMEGA 3 ACID ETHYL ESTERS 1 GM CAPSULE PO SCH (10:19)
[2018-10-10] MEDS: MORPHINE ER 30 MG TABLET PO SCH (10:19)
[2018-10-10] MEDS: INSULIN LISPRO 100 UNIT/ML SUBCUT SCH ×2 (10:20→12:08)
[2018-10-10] MEDS: ZENPEP PO SCH (14:53)
[2018-10-10 16:05] VITALS: BP 138/85
== END 2018-10-10 16:10 | disposition hospice, home (50) | DRG 863 ==
LOC: EDUNIT# → N.ED 10:47 → N.EDINP 10:47 → OBSVTOIN 12:13 → N.EDINP 13:58 → N.2E 14:07
PROVIDERS: ADMIT Internal Medicine Cardiovascular Disease; ATTEND Internal Medicine Cardiovascular Disease

== ENCOUNTER 2019-01-31 10:19 | Inpatient (IN) ==
[2019-01-31] MEDS ORDERED: SODIUM CHLORIDE 0.9% 1,000 ML IV STA ×2 (10:59→12:27)
[2019-01-31] MEDS ORDERED: ONDANSETRON 4 MG/2 ML VIAL IV STA (11:00)
[2019-01-31 11:50] LABS: Basophils # 0.1 10*3/uL (0.0-0.2); Basophils % 0.5 % (0.0-0.8); Eosinophils # 0.2 10*3/uL (0.0-0.87); Eosinophils % 1.8 % (0.00-10.9); Hematocrit 34.6 VOL% (35.7-47.0); Hemoglobin 10.5 GM/DL (12.0-16.0); Immature Granulocytes % 0.6 %; Immature Granulocytes Absolute 0.08 #; Lymphocytes # 3.3 10*3/uL (1.4-4.0); Mean Corpuscular HGB Conc 30.3 GM/DL (32-36); Mean Corpuscular Volume 90.8 FL (87-102); Mean Platelet Volume 10.6 FL (9.6-12.0); Monocytes % 4.4 % (1.7-12.7); Neutrophils % 67.7 % (38.7-73.9); Platelet Count 244 T/CUMM (130-400); Red Blood Count 3.81 MC/CUMM (3.8-5.5); Red Cell Distribution Width 15.1 % (9.3-17.3); White Blood Count 13.2 T/CUMM (4-12)
[2019-01-31 11:56] LABS: Apearance,Urine CLOUDY (Clear); Bacteria,Urine Occasional /HPF (Few); Bilirubin,Urine Negative (Negative); Blood, Urine Large mg/dL (Negative); Glucose,Urine (UA) Negative (Negative); Ketones,Urine Negative (Negative); Nitrite,Urine Positive (Negative); Protein,Urine 100 MG/DL; RBC,Urine 175 /HPF (0-4); Urine Color Amber (Yellow); Urine Specific Gravity 1.014 (1.001-1.035); WBC,Urine 995 /HPF (0-6)
[2019-01-31 12:08] LABS: Albumin 2.5 G/DL (3.4-5.0); Bilirubin,Total 0.4 MG/DL (0.2-1.0); Calcium 7.8 MG/DL (8.5-10.1); Osmolality,Calculated 281.2 MOS/KG (273-304); Total Protein 6.8 G/DL (6.4-8.3)
[2019-01-31] MEDS ORDERED: cefTRIAXone 1,000 MG in SODIUM CHLORIDE 0.9% 100 ML IV STA (12:15)
[2019-01-31] MEDS ORDERED: GENTAMICIN INJ 80 MG in SODIUM CHLORIDE 0.9% 100 ML IV STA (12:22)
[2019-01-31] MEDS ORDERED: HYDROCORTISONE 100 MG VIAL IV STA (12:27)
[2019-01-31] MEDS ORDERED: DEXTROSE 10% 25 GM/250 ML BAG IV PRN (12:28)
[2019-01-31] MEDS ORDERED: GLUCAGON 1 MG VIAL IM PRN (12:28)
[2019-01-31] MEDS ORDERED: ACETAMINOPHEN 325 MG TABLET PO PRN (12:28)
[2019-01-31] MEDS ORDERED: ONDANSETRON 4 MG/2 ML VIAL IV PRN (12:28)
[2019-01-31] MEDS ORDERED: POLYETHYLENE GLYCOL POWDER 17 GM PACK PO PRN (12:34)
[2019-01-31] MEDS ORDERED: MECLIZINE 25 MG TABLET PO PRN (12:34)
[2019-01-31] MEDS ORDERED: traZODone 50 MG TABLET PO PRN (12:34)
[2019-01-31] MEDS ORDERED: DOCUSATE/SENNA 50-8.6 MG TABLET PO PRN (12:34)
[2019-01-31] MEDS ORDERED: GENTAMICIN 80 MG/2 ML VIAL ONE (12:56)
[2019-01-31] MEDS: cefTRIAXone 1,000 MG in SYRINGE 1 EACH IV SCH (14:26)
[2019-01-31] MEDS: HYDROCORTISONE 100 MG VIAL IV SCH (14:55)
[2019-01-31] MEDS: METOPROLOL SUCCINATE XL 50 MG TABLET PO SCH ×2 (14:56→20:37)
[2019-01-31] MEDS: GABAPENTIN 600 MG TABLET PO SCH ×2 (14:56→20:37)
[2019-01-31] MEDS: SODIUM CHLORIDE 0.9% 1,000 ML IV SCH ×2 (14:56→20:38)
[2019-01-31] MEDS ORDERED: SODIUM CHLORIDE 0.9% 1,000 ML IV ONE (16:11)
[2019-01-31] MEDS: LINEZOLID INJ 600 MG in PREMIX 1 EACH IV SCH (17:12)
[2019-01-31] MEDS: ENOXAPARIN 30 MG/0.3 ML SYRINGE SUBCUT SCH (20:36)
[2019-01-31] MEDS: DOCUSATE SODIUM 100 MG CAPSULE PO SCH (20:37)
[2019-01-31] MEDS: COLESEVELAM 625 MG TABLET PO SCH (20:37)
[2019-01-31] MEDS: oxyCODONE/ACETAMINOPHEN 5-325 MG TABLET PO PRN (20:37)
[2019-01-31] MEDS ORDERED: AMITRIPTYLINE 25 MG TABLET PO SCH (21:00)
[2019-01-31] MEDS ORDERED: METHOCARBAMOL 500 MG TABLET PO SCH (21:00)
[2019-01-31] MEDS ORDERED: LISINOPRIL 2.5 MG TABLET PO SCH (21:00)
[2019-01-31] MEDS ORDERED: HYDROXYCHLOROQUINE 200 MG TABLET PO SCH (21:00)
[2019-01-31] MEDS ORDERED: MIRTAZAPINE 15 MG TABLET PO SCH (21:00)
[2019-02-01] MEDS: HYDROCORTISONE 100 MG VIAL IV SCH ×2 (01:12→12:42)
[2019-02-01] MEDS: SODIUM CHLORIDE 0.9% 1,000 ML IV SCH ×5 (01:14→21:03)
[2019-02-01] MEDS: LEVOTHYROXINE 88 MCG TABLET PO SCH (06:05)
[2019-02-01] MEDS: LINEZOLID INJ 600 MG in PREMIX 1 EACH IV SCH ×2 (06:05→17:37)
[2019-02-01 07:01] LABS: Basophils % 0.3 % (0.0-0.8); Eosinophils % 0.1 % (0.00-10.9); Hematocrit 33.9 VOL% (35.7-47.0); Immature Granulocytes % 0.8 %; Immature Granulocytes Absolute 0.09 #; Lymphocytes # 1.6 10*3/uL (1.4-4.0); Lymphocytes % 13.5 % (21.3-54.2); Mean Corpuscular HGB Conc 29.5 GM/DL (32-36); Mean Corpuscular Volume 92.6 FL (87-102); Mean Platelet Volume 10.9 FL (9.6-12.0); Monocytes % 2.4 % (1.7-12.7); Neutrophils % 82.9 % (38.7-73.9); Platelet Count 237 T/CUMM (130-400); Red Blood Count 3.66 MC/CUMM (3.8-5.5); Red Cell Distribution Width 15.1 % (9.3-17.3)
[2019-02-01 07:36] LABS: Albumin 2.4 G/DL (3.4-5.0); Bilirubin,Total 0.4 MG/DL (0.2-1.0); Calcium 8.3 MG/DL (8.5-10.1); Osmolality,Calculated 287.5 MOS/KG (273-304); Total Protein 6.5 G/DL (6.4-8.3)
[2019-02-01] MEDS ORDERED: DULoxetine 30 MG CAPSULE PO SCH (09:00)
[2019-02-01] MEDS ORDERED: ESCITALOPRAM 10 MG TABLET PO SCH (09:00)
[2019-02-01] MEDS: DOCUSATE SODIUM 100 MG CAPSULE PO SCH ×2 (09:47→20:55)
[2019-02-01] MEDS: GABAPENTIN 600 MG TABLET PO SCH ×3 (09:47→20:55)
[2019-02-01] MEDS: COLESEVELAM 625 MG TABLET PO SCH ×2 (09:47→20:55)
[2019-02-01] MEDS: POTASSIUM CHLORIDE 20 MEQ TABLET PO SCH (09:47)
[2019-02-01] MEDS: ASPIRIN EC 81 MG TABLET PO SCH (09:47)
[2019-02-01] MEDS: CHOLECALCIFEROL 1,000 UNIT TABLET PO SCH (09:48)
[2019-02-01] MEDS: METOPROLOL SUCCINATE XL 50 MG TABLET PO SCH ×3 (09:48→20:55)
[2019-02-01] MEDS: TAMSULOSIN 0.4 MG CAPSULE PO SCH (09:48)
[2019-02-01] MEDS: PANTOPRAZOLE 40 MG TABLET PO SCH (09:48)
[2019-02-01] MEDS: CALCIUM (CARBONATE)/VITAMIN D 500 MG-200 UNIT TABLET PO SCH (09:48)
[2019-02-01] MEDS: oxyCODONE/ACETAMINOPHEN 5-325 MG TABLET PO PRN (12:16)
[2019-02-01] MEDS: cefTRIAXone 1,000 MG in SYRINGE 1 EACH IV SCH (12:42)
[2019-02-01] MEDS: SODIUM HYPOCHLORITE 0.25% IRRIG 473 ML BOTTLE TOP SCH (12:43)
[2019-02-01] MEDS ORDERED: ALBUTEROL/IPRATROPIUM 3 ML NEB RESP TX PRN (17:27)
[2019-02-01] MEDS: ENOXAPARIN 30 MG/0.3 ML SYRINGE SUBCUT SCH (20:55)
[2019-02-02] MEDS: HYDROCORTISONE 100 MG VIAL IV SCH (01:46)
[2019-02-02 02:45] VITALS: BP 113/79
[2019-02-02] MEDS: LINEZOLID INJ 600 MG in PREMIX 1 EACH IV SCH (05:43)
[2019-02-02] MEDS: LEVOTHYROXINE 88 MCG TABLET PO SCH (05:44)
[2019-02-02] MEDS: SODIUM CHLORIDE 0.9% 1,000 ML IV SCH (05:45)
[2019-02-02 06:56] LABS: Calcium 8.3 MG/DL (8.5-10.1)
[2019-02-02] MEDS ORDERED: FLUCONAZOLE 100 MG TABLET PO SCH (09:00)
[2019-02-02] MEDS: CALCIUM (CARBONATE)/VITAMIN D 500 MG-200 UNIT TABLET PO SCH (09:41)
[2019-02-02] MEDS: COLESEVELAM 625 MG TABLET PO SCH (09:41)
[2019-02-02] MEDS: DOCUSATE SODIUM 100 MG CAPSULE PO SCH (09:41)
[2019-02-02] MEDS: GABAPENTIN 600 MG TABLET PO SCH (09:41)
[2019-02-02] MEDS: POTASSIUM CHLORIDE 20 MEQ TABLET PO SCH (09:42)
[2019-02-02] MEDS: SODIUM HYPOCHLORITE 0.25% IRRIG 473 ML BOTTLE TOP SCH (09:42)
[2019-02-02] MEDS: PANTOPRAZOLE 40 MG TABLET PO SCH (09:42)
[2019-02-02] MEDS: ASPIRIN EC 81 MG TABLET PO SCH (09:42)
[2019-02-02] MEDS: METOPROLOL SUCCINATE XL 50 MG TABLET PO SCH (09:42)
[2019-02-02] MEDS: CHOLECALCIFEROL 1,000 UNIT TABLET PO SCH (09:42)
[2019-02-02] MEDS: TAMSULOSIN 0.4 MG CAPSULE PO SCH (09:42)
== END 2019-02-02 12:30 | disposition home health service (06) | DRG 872 ==
LOC: EDBD → EDUNIT# → N.ED 10:19 → N.EDINP 12:28 → N.5E 13:11
PROVIDERS: ADMIT Family Medicine; ATTEND Family Medicine

== ENCOUNTER 2019-11-20 17:53 | Inpatient (IN) ==
[2019-11-20] MEDS ORDERED: SODIUM CHLORIDE 0.9% 1,000 ML IV STA (18:10)
[2019-11-20 18:45] LABS: Basophils # 0.1 10*3/uL (0.0-0.2); Basophils % 0.8 % (0.0-0.8); Eosinophils # 0.2 10*3/uL (0.0-0.87); Eosinophils % 3.5 % (0.00-10.9); Hematocrit 34.1 VOL% (35.7-47.0); Hemoglobin 10.4 GM/DL (12.0-16.0); Immature Granulocytes % 0.6 %; Immature Granulocytes Absolute 0.04 #; Lymphocytes # 2.1 10*3/uL (1.4-4.0); Lymphocytes % 31.6 % (21.3-54.2); Mean Corpuscular HGB Conc 30.5 GM/DL (32-36); Mean Corpuscular Volume 95.3 FL (87-102); Monocytes % 4.4 % (1.7-12.7); Neutrophils % 59.1 % (38.7-73.9); Platelet Count 186 T/CUMM (130-400); Red Blood Count 3.58 MC/CUMM (3.8-5.5); Red Cell Distribution Width 14.8 % (9.3-17.3); White Blood Count 6.6 T/CUMM (4-12)
[2019-11-20 18:55] LABS: PT Patient Result 11.1 SECS (9.8-11.9)
[2019-11-20 19:04] LABS: Alanine Aminotransferase < 9 U/L (13-56); Albumin 2.5 G/DL (3.4-5.0); Alkaline Phosphatase 85 U/L (45-117); Aspartate Amino Transferase 28 U/L (0-37); Blood Urea Nitrogen 25 MG/DL (7-18); Calcium 9.2 MG/DL (8.5-10.1); Estimated Glom Filtration Rate 23 ML/MIN; Glucose 108 MG/DL (74-106); Osmolality,Calculated 287.1 MOS/KG (273-304); Total Protein 6.9 G/DL (6.4-8.3)
[2019-11-20 19:05] LABS: Apearance,Urine Slightly Hazy (Clear); Bilirubin,Urine Negative (Negative); Blood, Urine Moderate mg/dL (Negative); Glucose,Urine (UA) Negative (Negative); Ketones,Urine Negative (Negative); Mucus,Urine Occasional /LPF (Occasional); Nitrite,Urine Negative (Negative); Protein,Urine 30 MG/DL; RBC,Urine 4 /HPF (0-4); Squamous Epithelial Cell,Urine Occasional /HPF (0-10); Urine Color Yellow (Yellow); Urine Specific Gravity 1.009 (1.001-1.035); Urine Urobilinogen < 2.0 EU/DL (0.2-1.0); WBC,Urine 143 /HPF (0-6)
[2019-11-20] MEDS ORDERED: PIPERACILLIN/TAZOBACTAM 3,375 MG in SODIUM CHLORIDE 0.9% 100 ML IV STA (19:50)
[2019-11-20] MEDS ORDERED: ACETAMINOPHEN 325 MG TABLET PO PRN (19:57)
[2019-11-20] MEDS ORDERED: ONDANSETRON 4 MG/2 ML VIAL IV PRN (19:57)
[2019-11-21] MEDS: SODIUM CHLORIDE 0.9% 1,000 ML IV SCH ×2 (01:24→15:59)
[2019-11-21 06:22] LABS: Basophils % 0.7 % (0.0-0.8); Eosinophils # 0.2 10*3/uL (0.0-0.87); Eosinophils % 5.1 % (0.00-10.9); Hematocrit 30.7 VOL% (35.7-47.0); Hemoglobin 9.3 GM/DL (12.0-16.0); Immature Granulocytes % 0.5 %; Immature Granulocytes Absolute 0.02 #; Lymphocytes # 1.6 10*3/uL (1.4-4.0); Lymphocytes % 37.3 % (21.3-54.2); Mean Corpuscular HGB Conc 30.3 GM/DL (32-36); Mean Corpuscular Volume 96.5 FL (87-102); Mean Platelet Volume 11.1 FL (9.6-12.0); Neutrophils % 50.4 % (38.7-73.9); Platelet Count 178 T/CUMM (130-400); Red Blood Count 3.18 MC/CUMM (3.8-5.5); Red Cell Distribution Width 14.8 % (9.3-17.3); White Blood Count 4.3 T/CUMM (4-12)
[2019-11-21 06:44] LABS: Alanine Aminotransferase < 6 U/L (13-56); Albumin 2.3 G/DL (3.4-5.0); Alkaline Phosphatase 73 U/L (45-117); Aspartate Amino Transferase 26 U/L (0-37); Blood Urea Nitrogen 23 MG/DL (7-18); Calcium 8.6 MG/DL (8.5-10.1); Estimated Glom Filtration Rate 28 ML/MIN; Glucose 74 MG/DL (74-106); Osmolality,Calculated 292.6 MOS/KG (273-304)
[2019-11-21] MEDS: PANTOPRAZOLE 40 MG VIAL IV SCH (09:49)
[2019-11-21] MEDS: PIPERACILLIN/TAZOBACTAM 3,375 MG in SODIUM CHLORIDE 0.9% 100 ML IV SCH ×2 (09:50→20:41)
[2019-11-21] MEDS ORDERED: CETIRIZINE 10 MG TABLET PO PRN (11:42)
[2019-11-21] MEDS ORDERED: PREGABALIN 75 MG CAPSULE PO PRN (11:42)
[2019-11-21] MEDS: ESCITALOPRAM 10 MG TABLET PO SCH (12:10)
[2019-11-21] MEDS: TAMSULOSIN 0.4 MG CAPSULE PO SCH ×2 (12:10→20:44)
[2019-11-21] MEDS: DULoxetine 30 MG CAPSULE PO SCH ×2 (12:10→20:43)
[2019-11-21] MEDS: ASPIRIN EC 81 MG TABLET PO SCH (12:10)
[2019-11-21] MEDS: FUROSEMIDE 40 MG TABLET PO SCH (12:10)
[2019-11-21] MEDS: HYDROXYCHLOROQUINE 200 MG TABLET PO SCH ×2 (12:10→20:42)
[2019-11-21] MEDS: LEVOTHYROXINE 88 MCG TABLET PO SCH (12:10)
[2019-11-21] MEDS: GABAPENTIN 600 MG TABLET PO SCH ×2 (15:58→20:43)
[2019-11-21] MEDS: METOPROLOL SUCCINATE XL 50 MG TABLET PO SCH ×2 (15:58→20:42)
[2019-11-21] MEDS: HYDROCORTISONE 10 MG TABLET PO SCH ×2 (15:58→20:43)
[2019-11-21] MEDS: MIRTAZAPINE 15 MG TABLET PO SCH (20:42)
[2019-11-22 06:18] LABS: Basophils % 0.5 % (0.0-0.8); Eosinophils # 0.1 10*3/uL (0.0-0.87); Eosinophils % 2.9 % (0.00-10.9); Hematocrit 30.2 VOL% (35.7-47.0); Hemoglobin 9.3 GM/DL (12.0-16.0); Immature Granulocytes % 0.2 %; Immature Granulocytes Absolute 0.01 #; Lymphocytes # 1.9 10*3/uL (1.4-4.0); Lymphocytes % 44.8 % (21.3-54.2); Mean Corpuscular HGB Conc 30.8 GM/DL (32-36); Monocytes % 7.2 % (1.7-12.7); Neutrophils % 44.4 % (38.7-73.9); Platelet Count 177 T/CUMM (130-400); Red Blood Count 3.18 MC/CUMM (3.8-5.5); Red Cell Distribution Width 14.7 % (9.3-17.3); White Blood Count 4.2 T/CUMM (4-12)
[2019-11-22] MEDS: SODIUM CHLORIDE 0.9% 1,000 ML IV SCH ×2 (06:20→06:28)
[2019-11-22 06:42] LABS: Alanine Aminotransferase < 9 U/L (13-56); Albumin 2.3 G/DL (3.4-5.0); Alkaline Phosphatase 70 U/L (45-117); Aspartate Amino Transferase 19 U/L (0-37); Bilirubin,Total < 0.39 MG/DL (0.2-1.0); Blood Urea Nitrogen 18 MG/DL (7-18); Calcium 8.4 MG/DL (8.5-10.1); Estimated Glom Filtration Rate 28 ML/MIN; Ferritin 74.4 ng/ml (8-252); Free T4 (Free Thyroxine) 1.02 NG/DL (0.76-1.46); Glucose 135 MG/DL (74-106); HDL Cholesterol 27 MG/DL (40-60); Iron 30 UG/DL (50-170); Osmolality,Calculated 289.8 MOS/KG (273-304); Total Protein 6.2 G/DL (6.4-8.3); Triglycerides 128 MG/DL (2-150); VLDL CHOLESTEROL 25.6 MG/DL
[2019-11-22] MEDS: PIPERACILLIN/TAZOBACTAM 3,375 MG in SODIUM CHLORIDE 0.9% 100 ML IV SCH ×2 (09:57→21:09)
[2019-11-22] MEDS: DULoxetine 30 MG CAPSULE PO SCH ×2 (09:58→21:12)
[2019-11-22] MEDS: FUROSEMIDE 40 MG TABLET PO SCH (09:58)
[2019-11-22] MEDS: PANTOPRAZOLE 40 MG VIAL IV SCH (09:58)
[2019-11-22] MEDS: FERROUS SULFATE 325 MG TABLET PO SCH (09:58)
[2019-11-22] MEDS: LEVOTHYROXINE 88 MCG TABLET PO SCH (09:58)
[2019-11-22] MEDS: lisinopriL 2.5 MG TABLET PO SCH (09:58)
[2019-11-22] MEDS: METOPROLOL SUCCINATE XL 50 MG TABLET PO SCH ×3 (09:58→21:08)
[2019-11-22] MEDS: GABAPENTIN 600 MG TABLET PO SCH ×3 (09:58→21:09)
[2019-11-22] MEDS: TAMSULOSIN 0.4 MG CAPSULE PO SCH ×2 (09:58→21:08)
[2019-11-22] MEDS: ASPIRIN EC 81 MG TABLET PO SCH (09:58)
[2019-11-22] MEDS: ESCITALOPRAM 10 MG TABLET PO SCH (09:58)
[2019-11-22] MEDS: HYDROXYCHLOROQUINE 200 MG TABLET PO SCH ×2 (09:59→21:11)
[2019-11-22] MEDS: FOLIC ACID 1 MG TABLET PO SCH (10:03)
[2019-11-22] MEDS: HYDROCORTISONE 10 MG TABLET PO SCH ×3 (10:03→21:09)
[2019-11-22] MEDS ORDERED: POLYETHYLENE GLYCOL POWDER 17 GM PACK PO PRN (15:43)
[2019-11-22] MEDS ORDERED: DOCUSATE SODIUM 100 MG CAPSULE PO PRN (21:00)
[2019-11-22] MEDS: MIRTAZAPINE 15 MG TABLET PO SCH (21:09)
[2019-11-23 06:24] LABS: Basophils % 0.7 % (0.0-0.8); Eosinophils % 0.7 % (0.00-10.9); Hematocrit 30.8 VOL% (35.7-47.0); Hemoglobin 9.5 GM/DL (12.0-16.0); Immature Granulocytes % 0.2 %; Immature Granulocytes Absolute 0.01 #; Lymphocytes # 1.9 10*3/uL (1.4-4.0); Lymphocytes % 46.7 % (21.3-54.2); Mean Corpuscular HGB Conc 30.8 GM/DL (32-36); Mean Corpuscular Volume 94.2 FL (87-102); Mean Platelet Volume 11.3 FL (9.6-12.0); Monocytes % 6.6 % (1.7-12.7); Neutrophils % 45.1 % (38.7-73.9); Platelet Count 174 T/CUMM (130-400); Red Blood Count 3.27 MC/CUMM (3.8-5.5); Red Cell Distribution Width 14.6 % (9.3-17.3); White Blood Count 4.1 T/CUMM (4-12)
[2019-11-23] MEDS: LEVOTHYROXINE 88 MCG TABLET PO SCH (10:30)
[2019-11-23] MEDS: lisinopriL 2.5 MG TABLET PO SCH (10:30)
[2019-11-23] MEDS: PANTOPRAZOLE 40 MG VIAL IV SCH (10:30)
[2019-11-23] MEDS: GABAPENTIN 600 MG TABLET PO SCH ×3 (10:30→21:10)
[2019-11-23] MEDS: ASPIRIN EC 81 MG TABLET PO SCH (10:30)
[2019-11-23] MEDS: DULoxetine 30 MG CAPSULE PO SCH ×2 (10:30→21:10)
[2019-11-23] MEDS: FOLIC ACID 1 MG TABLET PO SCH (10:31)
[2019-11-23] MEDS: TAMSULOSIN 0.4 MG CAPSULE PO SCH ×2 (10:31→21:10)
[2019-11-23] MEDS: ESCITALOPRAM 10 MG TABLET PO SCH (10:31)
[2019-11-23] MEDS: METOPROLOL SUCCINATE XL 50 MG TABLET PO SCH ×3 (10:31→21:10)
[2019-11-23] MEDS: FUROSEMIDE 40 MG TABLET PO SCH (10:31)
[2019-11-23] MEDS: HYDROCORTISONE 10 MG TABLET PO SCH ×3 (10:31→21:09)
[2019-11-23] MEDS: HYDROXYCHLOROQUINE 200 MG TABLET PO SCH ×2 (10:31→21:09)
[2019-11-23] MEDS: FERROUS SULFATE 325 MG TABLET PO SCH (10:31)
[2019-11-23] MEDS: PIPERACILLIN/TAZOBACTAM 3,375 MG in SODIUM CHLORIDE 0.9% 100 ML IV SCH ×2 (10:52→21:12)
[2019-11-23] MEDS: oxyCODONE/ACETAMINOPHEN 5-325 MG TABLET PO PRN ×2 (13:39→21:11)
[2019-11-23] MEDS: MIRTAZAPINE 15 MG TABLET PO SCH (21:10)
[2019-11-24] MEDS: SODIUM CHLORIDE 0.9% 1,000 ML IV SCH (01:25)
[2019-11-24] MEDS: LEVOTHYROXINE 88 MCG TABLET PO SCH (08:49)
[2019-11-24] MEDS: lisinopriL 2.5 MG TABLET PO SCH (08:49)
[2019-11-24] MEDS: GABAPENTIN 600 MG TABLET PO SCH (08:49)
[2019-11-24] MEDS: DULoxetine 30 MG CAPSULE PO SCH (08:49)
[2019-11-24] MEDS: TAMSULOSIN 0.4 MG CAPSULE PO SCH (08:49)
[2019-11-24] MEDS: FOLIC ACID 1 MG TABLET PO SCH (08:49)
[2019-11-24] MEDS: FERROUS SULFATE 325 MG TABLET PO SCH (08:49)
[2019-11-24] MEDS: FUROSEMIDE 40 MG TABLET PO SCH (08:49)
[2019-11-24] MEDS: ESCITALOPRAM 10 MG TABLET PO SCH (08:49)
[2019-11-24] MEDS: ASPIRIN EC 81 MG TABLET PO SCH (08:50)
[2019-11-24] MEDS: HYDROXYCHLOROQUINE 200 MG TABLET PO SCH (08:50)
[2019-11-24] MEDS: HYDROCORTISONE 10 MG TABLET PO SCH (08:50)
[2019-11-24] MEDS: PANTOPRAZOLE 40 MG VIAL IV SCH (08:51)
[2019-11-24] MEDS: METOPROLOL SUCCINATE XL 50 MG TABLET PO SCH (09:46)
[2019-11-24] MEDS: PIPERACILLIN/TAZOBACTAM 3,375 MG in SODIUM CHLORIDE 0.9% 100 ML IV SCH (09:46)
[2019-11-24] MEDS: oxyCODONE/ACETAMINOPHEN 5-325 MG TABLET PO PRN (10:30)
[2019-11-24 11:40] VITALS: BP 157/64
[2019-11-24] MEDS ORDERED: INFLUENZA VIRUS VACCINE 0.5 ML SYRINGE IM ONE (13:01)
== END 2019-11-24 15:00 | disposition home health service (06) | DRG 683 ==
LOC: EDBD → EDUNIT# → N.EDINP 17:53 → N.ED 17:53 → N.3E 20:16
PROVIDERS: ADMIT Family Medicine; ATTEND Family Medicine

== ENCOUNTER 2020-01-19 11:45 | Inpatient (IN) ==
[2020-01-19 13:44] LABS: Bilirubin,Urine Negative (Negative); Blood, Urine Moderate mg/dL (Negative); Glucose,Urine (UA) Negative (Negative); Ketones,Urine Negative (Negative); Nitrite,Urine Negative (Negative); Protein,Urine 100 MG/DL; RBC,Urine 103 /HPF (0-4); Urine Appearance CLOUDY (Clear); Urine Color Yellow (Yellow); Urine Specific Gravity 1.017 (1.001-1.035); Urine Urobilinogen < 2.0 EU/DL (0.2-1.0); WBC,Urine 3341 /HPF (0-6)
[2020-01-19 13:56] LABS: Alanine Aminotransferase 29 U/L (13-56); Albumin 2.2 G/DL (3.4-5.0); Alkaline Phosphatase 78 U/L (45-117); Aspartate Amino Transferase 61 U/L (0-37); Bilirubin,Total < 0.39 MG/DL (0.2-1.0); Blood Urea Nitrogen 34 MG/DL (7-18); Calcium 5.9 MG/DL (8.5-10.1); Estimated Glom Filtration Rate 23 ML/MIN; Glucose 71 MG/DL (74-106); Osmolality,Calculated 284.4 MOS/KG (273-304); Total Protein 4.9 G/DL (6.4-8.3)
[2020-01-19 14:08] LABS: Basophils # 0.1 10*3/uL (0.0-0.2); Basophils % 0.6 % (0.0-0.8); Eosinophils # 0.2 10*3/uL (0.0-0.87); Eosinophils % 2.5 % (0.00-10.9); Hematocrit 33.2 VOL% (35.7-47.0); Hemoglobin 10.2 GM/DL (12.0-16.0); Immature Granulocytes % 0.5 %; Immature Granulocytes Absolute 0.04 #; Lymphocytes # 3.5 10*3/uL (1.4-4.0); Lymphocytes % 41.1 % (21.3-54.2); Mean Corpuscular HGB Conc 30.7 GM/DL (32-36); Mean Corpuscular Volume 94.9 FL (87-102); Mean Platelet Volume 10.6 FL (9.6-12.0); Neutrophils % 49.3 % (38.7-73.9); Platelet Count 215 T/CUMM (130-400); Red Cell Distribution Width 16.8 % (9.3-17.3); White Blood Count 8.4 T/CUMM (4-12)
[2020-01-19] MEDS ORDERED: cefTRIAXone 1,000 MG in SODIUM CHLORIDE 0.9% 100 ML IV STA (14:26)
[2020-01-19] MEDS ORDERED: SODIUM CHLORIDE 0.9% 1,000 ML IV STA (14:32)
[2020-01-19] MEDS ORDERED: SODIUM CHLORIDE 0.9% 500 ML IV STA (16:20)
[2020-01-19] MEDS: SODIUM CHLORIDE 0.9% 1,000 ML IV SCH (19:58)
[2020-01-19] MEDS ORDERED: HYDROCORTISONE 20 MG PO SCH (21:00)
[2020-01-19] MEDS: methylPREDNISolone SOD SUC 40 MG/1 ML VIAL IV SCH (21:11)
[2020-01-19] MEDS: COLESTIPOL 1 GM TABLET PO SCH (21:13)
[2020-01-19] MEDS: HYDROXYCHLOROQUINE 200 MG TABLET PO SCH (21:13)
[2020-01-19] MEDS: DICLOFENAC 1% GEL 100 GM TUBE TOP SCH (21:13)
[2020-01-19] MEDS ORDERED: SIMETHICONE CHEW 125 MG TABLET PO PRN (22:56)
[2020-01-19] MEDS: ACETAMINOPHEN 325 MG TABLET PO PRN (23:35)
[2020-01-20] MEDS: ACETAMINOPHEN 325 MG TABLET PO PRN (03:46)
[2020-01-20 05:48] LABS: Basophils % 0.3 % (0.0-0.8); Eosinophils % 0.2 % (0.00-10.9); Hematocrit 33.5 VOL% (35.7-47.0); Hemoglobin 10.3 GM/DL (12.0-16.0); Immature Granulocytes % 0.8 %; Immature Granulocytes Absolute 0.07 #; Lymphocytes # 1.8 10*3/uL (1.4-4.0); Lymphocytes % 20.2 % (21.3-54.2); Mean Corpuscular HGB Conc 30.7 GM/DL (32-36); Mean Corpuscular Volume 95.2 FL (87-102); Mean Platelet Volume 10.5 FL (9.6-12.0); Monocytes % 2.2 % (1.7-12.7); Neutrophils % 76.3 % (38.7-73.9); Platelet Count 213 T/CUMM (130-400); Red Blood Count 3.52 MC/CUMM (3.8-5.5); Red Cell Distribution Width 16.8 % (9.3-17.3); White Blood Count 8.8 T/CUMM (4-12)
[2020-01-20] MEDS: LEVOTHYROXINE 88 MCG TABLET PO SCH (05:58)
[2020-01-20 06:14] LABS: Calcium 8.3 MG/DL (8.5-10.1); Osmolality,Calculated 292.4 MOS/KG (273-304)
[2020-01-20 06:15] LABS: Band Neutrophils 3 % (0-10); Hypochromasia 1+; Lymphocytes 20 % (20-55); Microcytosis 1+; Segmented Neutrophils 75 % (50-85); Total Cells Counted 100
[2020-01-20 06:16] LABS: Ovalocytes Slight; Platelet Estimate Normal
[2020-01-20] MEDS ORDERED: FUROSEMIDE 20 MG/2 ML VIAL IV ONE (08:00)
[2020-01-20] MEDS ORDERED: SODIUM POLYSTYRENE SULFATE 15 GM/60 ML BOTTLE PO ONE (08:00)
[2020-01-20] MEDS ORDERED: SODIUM BICARB IV ONE (08:00)
[2020-01-20] MEDS ORDERED: CALCIUM GLUCONATE 1,000 MG in SODIUM CHLORIDE 0.9% 100 ML IV ONE (08:00)
[2020-01-20] MEDS ORDERED: ALBUTEROL 2.5 MG/3 ML NEB RESP TX ONE (08:00)
[2020-01-20] MEDS: DICLOFENAC 1% GEL 100 GM TUBE TOP SCH ×4 (08:59→20:51)
[2020-01-20] MEDS: FOLIC ACID 1 MG TABLET PO SCH (08:59)
[2020-01-20] MEDS: PANTOPRAZOLE 40 MG TABLET PO SCH (08:59)
[2020-01-20] MEDS: ASPIRIN EC 81 MG TABLET PO SCH (08:59)
[2020-01-20] MEDS: HYDROXYCHLOROQUINE 200 MG TABLET PO SCH ×2 (08:59→20:51)
[2020-01-20] MEDS: methylPREDNISolone SOD SUC 40 MG/1 ML VIAL IV SCH (09:00)
[2020-01-20] MEDS: COLESTIPOL 1 GM TABLET PO SCH ×2 (09:00→20:51)
[2020-01-20] MEDS: DULoxetine 30 MG CAPSULE PO SCH (09:00)
[2020-01-20] MEDS: SODIUM CHLORIDE 0.9% 1,000 ML IV SCH ×2 (09:07→23:56)
[2020-01-20] MEDS: MEROPENEM 500 MG in SODIUM CHLORIDE 0.9% 100 ML IV SCH ×2 (10:08→20:49)
[2020-01-20] MEDS: HYDROCORTISONE 100 MG VIAL IV SCH ×2 (10:09→21:06)
[2020-01-20 11:51] LABS: Calcium 8.5 MG/DL (8.5-10.1); Osmolality,Calculated 289.5 MOS/KG (273-304)
[2020-01-20] MEDS ORDERED: cefTRIAXone 1,000 MG in SYRINGE 1 EACH IV SCH (14:00)
[2020-01-21] MEDS: LEVOTHYROXINE 88 MCG TABLET PO SCH (05:53)
[2020-01-21 06:26] LABS: Basophils # 0.1 10*3/uL (0.0-0.2); Basophils % 0.6 % (0.0-0.8); Eosinophils # 0.1 10*3/uL (0.0-0.87); Eosinophils % 1.3 % (0.00-10.9); Hematocrit 33.8 VOL% (35.7-47.0); Hemoglobin 10.4 GM/DL (12.0-16.0); Immature Granulocytes % 0.8 %; Immature Granulocytes Absolute 0.06 #; Lymphocytes # 3.6 10*3/uL (1.4-4.0); Lymphocytes % 45.6 % (21.3-54.2); Mean Corpuscular HGB Conc 30.8 GM/DL (32-36); Mean Corpuscular Volume 94.9 FL (87-102); Mean Platelet Volume 10.4 FL (9.6-12.0); Monocytes % 6.4 % (1.7-12.7); Neutrophils % 45.3 % (38.7-73.9); Platelet Count 228 T/CUMM (130-400); Red Blood Count 3.56 MC/CUMM (3.8-5.5); Red Cell Distribution Width 17.4 % (9.3-17.3); White Blood Count 7.8 T/CUMM (4-12)
[2020-01-21 06:47] LABS: Calcium 8.6 MG/DL (8.5-10.1); Osmolality,Calculated 302.4 MOS/KG (273-304)
[2020-01-21] MEDS: HYDROCORTISONE 100 MG VIAL IV SCH ×2 (10:02→21:16)
[2020-01-21] MEDS: MEROPENEM 500 MG in SODIUM CHLORIDE 0.9% 100 ML IV SCH (10:02)
[2020-01-21] MEDS ORDERED: HYDROCORTISONE 100 MG VIAL ONE (12:44)
[2020-01-21] MEDS ORDERED: SODIUM CHLORIDE 0.9% 1,000 ML IV ONE (12:48)
[2020-01-21] MEDS ORDERED: PHENYLEPHRINE 1 MG/10 ML SYRINGE IV ONE (12:57)
[2020-01-21] MEDS ORDERED: GLYCOPYRROLATE 0.4 MG/2 ML VIAL ONE (12:59)
[2020-01-21] MEDS ORDERED: ONDANSETRON 4 MG/2 ML VIAL ONE (12:59)
[2020-01-21] MEDS ORDERED: NEOSTIGMINE 10 MG/10 ML VIAL ONE (12:59)
[2020-01-21] MEDS ORDERED: ESMOLOL 100 MG/10 ML VIAL IV ONE (13:27)
[2020-01-21] MEDS ORDERED: HYDROmorphone 2 MG/1 ML VIAL IV PRN (14:48)
[2020-01-21] MEDS: PANTOPRAZOLE 40 MG TABLET PO SCH (15:44)
[2020-01-21] MEDS: HYDROXYCHLOROQUINE 200 MG TABLET PO SCH ×2 (15:44→21:19)
[2020-01-21] MEDS: oxyCODONE/ACETAMINOPHEN 5-325 MG TABLET PO PRN ×2 (15:45→21:27)
[2020-01-21] MEDS: ASPIRIN EC 81 MG TABLET PO SCH (15:45)
[2020-01-21] MEDS: lisinopriL 2.5 MG TABLET PO SCH (15:45)
[2020-01-21] MEDS: COLESTIPOL 1 GM TABLET PO SCH ×2 (15:45→21:18)
[2020-01-21] MEDS: FOLIC ACID 1 MG TABLET PO SCH (15:45)
[2020-01-21] MEDS: DULoxetine 30 MG CAPSULE PO SCH (15:45)
[2020-01-21] MEDS: DICLOFENAC 1% GEL 100 GM TUBE TOP SCH ×4 (15:46→21:22)
[2020-01-21] MEDS: SODIUM CHLORIDE 0.9% 1,000 ML IV SCH (21:33)
[2020-01-22] MEDS: MEROPENEM 500 MG in SODIUM CHLORIDE 0.9% 100 ML IV SCH (04:00)
[2020-01-22] MEDS: LEVOTHYROXINE 88 MCG TABLET PO SCH (05:30)
[2020-01-22 07:39] VITALS: BP 140/66
[2020-01-22 09:33] LABS: Basophils % 0.5 % (0.0-0.8); Eosinophils # 0.2 10*3/uL (0.0-0.87); Eosinophils % 3.1 % (0.00-10.9); Hematocrit 30.6 VOL% (35.7-47.0); Hemoglobin 9.6 GM/DL (12.0-16.0); Immature Granulocytes % 1.2 %; Immature Granulocytes Absolute 0.09 #; Lymphocytes # 3.7 10*3/uL (1.4-4.0); Lymphocytes % 49.5 % (21.3-54.2); Mean Corpuscular HGB Conc 31.4 GM/DL (32-36); Mean Platelet Volume 9.5 FL (9.6-12.0); Neutrophils % 39.7 % (38.7-73.9); Platelet Count 221 T/CUMM (130-400); Red Blood Count 3.29 MC/CUMM (3.8-5.5); Red Cell Distribution Width 17.6 % (9.3-17.3); White Blood Count 7.5 T/CUMM (4-12)
[2020-01-22] MEDS: HYDROXYCHLOROQUINE 200 MG TABLET PO SCH (09:34)
[2020-01-22] MEDS: ASPIRIN EC 81 MG TABLET PO SCH (09:34)
[2020-01-22] MEDS: DICLOFENAC 1% GEL 100 GM TUBE TOP SCH (09:34)
[2020-01-22] MEDS: DULoxetine 30 MG CAPSULE PO SCH (09:34)
[2020-01-22] MEDS: FOLIC ACID 1 MG TABLET PO SCH (09:34)
[2020-01-22] MEDS: lisinopriL 2.5 MG TABLET PO SCH (09:34)
[2020-01-22] MEDS: PANTOPRAZOLE 40 MG TABLET PO SCH (09:34)
[2020-01-22] MEDS: HYDROCORTISONE 100 MG VIAL IV SCH (09:35)
[2020-01-22] MEDS: COLESTIPOL 1 GM TABLET PO SCH (09:38)
[2020-01-22] MEDS: oxyCODONE/ACETAMINOPHEN 5-325 MG TABLET PO PRN (09:39)
[2020-01-22 09:48] LABS: Calcium 8.2 MG/DL (8.5-10.1); Osmolality,Calculated 302.1 MOS/KG (273-304)
[2020-01-22] MEDS ORDERED: SULFAMETHOX/TRIMETHOPRIM 800-160 MG TABLET PO SCH (21:00)
[2020-01-26 17:31] LABS: Stone Analysis Interpretation SEE COMMENTS
== END 2020-01-22 14:40 | disposition home health service (06) | DRG 660 ==
LOC: EDUNIT# → EDBD → N.ED 11:45 → N.EDINP 11:45 → N.3E 17:05
PROVIDERS: ADMIT Family Medicine; ATTEND Family Medicine